=== PATIENT | female | born 1990 | race American Indian/Alaskan Native ===

== ENCOUNTER 2017-08-06 17:05 | Emergency (ER) | payer MEDICAID ==
[2017-08-06] MEDS ORDERED: TYLENOL PO ONE (17:24)
[2017-08-06] MEDS ORDERED: TYLENOL ONE (17:28)
--- NOTE | 2017-08-06 21:16 | Emergency Department Report ---
ED ENT HPI - General Chief complaint: Headache Stated complaint: RIGHT SIDE FACIAL DROOP,HEADACHE Time Seen by Provider: 08/06/17 20:13 Source: patient Mode of arrival: Ambulatory Limitations: No Limitations - Related Data Previous Rx's Medication Instructions Recorded Last Taken Type Docusate Sodium [Colace CAP] 100 mg PO BID PRN #30 capsule 07/11/15 Unknown Rx Magnesium Citrate [Citrate of 300 ml PO PRN #1 bottle 07/11/15 Unknown Rx Magnesia] Ibuprofen [Motrin 800 MG tab] 800 mg PO Q8HR PRN #60 tablet 12/10/15 Unknown Rx Allergies Allergy/AdvReac Type Severity Reaction Status Date / Time Penicillins Allergy Hives Verified 07/11/15 11:32 ED Dental HPI - General Chief complaint: Dental/Oral Stated complaint: RIGHT SIDE FACIAL DROOP,HEADACHE Time Seen by Provider: 08/06/17 20:13 Source: patient Mode of arrival: Ambulatory Limitations: No Limitations - Related Data Previous Rx's Medication Instructions Recorded Last Taken Type Docusate Sodium [Colace CAP] 100 mg PO BID PRN #30 capsule 07/11/15 Unknown Rx Magnesium Citrate [Citrate of 300 ml PO PRN #1 bottle 07/11/15 Unknown Rx Magnesia] Ibuprofen [Motrin 800 MG tab] 800 mg PO Q8HR PRN #60 tablet 12/10/15 Unknown Rx Allergies Allergy/AdvReac Type Severity Reaction Status Date / Time Penicillins Allergy Hives Verified 07/11/15 11:32 ED Review of Systems ROS: Stated complaint: RIGHT SIDE FACIAL DROOP,HEADACHE Other details as noted in HPI ED Past Medical Hx - Past Medical History Hx Asthma: Yes Additional medical history: Anemia during - Surgical History Past Surgical History?: No - Social History Smoking Status: Current Every Day Smoker Substance Use Type: Alcohol - Medications Home Medications: Home Medications Medication Instructions Recorded Confirmed Last Taken Type Docusate Sodium [Colace CAP] 100 mg PO BID PRN #30 capsule 07/11/15 Unknown Rx Magnesium Citrate [Citrate of 300 ml PO PRN #1 bottle 07/11/15 Unknown Rx Magnesia] Ibuprofen [Motrin 800 MG tab] 800 mg PO Q8HR PRN #60 tablet 12/10/15 Unknown Rx ED Physical Exam - General Limitations: No Limitations ED Course Vital Signs 08/06/17 17:16 Temperature 98.7 F Pulse Rate 79 Respiratory 14 Rate Blood Pressure 110/68 O2 Sat by Pulse 99 Oximetry Critical care attestation.: If time is entered above; I have spent that time in minutes in the direct care of this critically ill patient, excluding procedure time. ED Disposition Condition: Stable Referrals: PRIMARY CARE, [Primary Care Provider] - 3-5 Days
[2017-08-06] MEDS ORDERED: BENADRYL IV ONE (21:25)
[2017-08-06] MEDS ORDERED: COMPAZINE IV ONE (21:25)
[2017-08-06] MEDS ORDERED: TORADOL IV ONE (21:26)
[2017-08-06] MEDS ORDERED: NACL 0.9% 1000 ML 1,000 ML IV ONE (21:26)
--- NOTE | 2017-08-06 21:47 | Emergency Department Report ---
ED Headache HPI - General Chief Complaint: Headache Stated Complaint: RIGHT SIDE FACIAL DROOP,HEADACHE Time Seen by Provider: 08/06/17 20:13 Source: patient Exam Limitations: no limitations - History of Present Illness Initial Comments: Pt has had a 3 day h/o right facial pain which she describes as her typical migraine. She has taken Tylenol, hydrocodone given to her by her dentist, but with little relief. Pt given Tylenol in triage which decreased the pain but now pain has returned. number 3 tooth extracted June and is not currently hurting . Pt denies dental pains and facial droop. She states that this is not her tooth hurting. Timing/Duration: constant Quality: moderate Head Injury Location: frontal Recent Head Trauma: no recent headache/trauma, occasional headaches Modifying Factors: improves with: medication Associated Symptoms: denies: denies symptoms, confusion, fatigue, facial pain, fever/chills, flushing, loss of consciousness, nausea/vomiting, nasal congestion , nasal drainage, numbness in legs/feet, rash, seizures, sinus infection, stiff neck, vision changes, weakness, other Allergies/Adverse Reactions: Allergies Penicillins Allergy (Verified 07/11/15 11:32) Hives Home Medications: Ambulatory Orders Docusate Sodium [Colace CAP] 100 mg PO BID PRN #30 capsule 07/11/15 Magnesium Citrate [Citrate of Magnesia] 300 ml PO PRN #1 bottle 07/11/15 Ibuprofen [Motrin 800 MG tab] 800 mg PO Q8HR PRN #60 tablet 12/10/15 Azithromycin [Zithromax] 250 mg PO QDAY #6 tablet 08/06/17 Fluticasone [Flonase] 1 spray NS QDAY #1 bottle 08/06/17 diphenhydrAMINE [Benadryl CAP] 50 mg PO Q6HR PRN #12 capsule 08/06/17 oxyCODONE /ACETAMINOPHEN [Percocet 5/325] 1 tab PO Q6HR PRN #10 tablet 08/06/17 ED Review of Systems ROS: Stated complaint: RIGHT SIDE FACIAL DROOP,HEADACHE Other details as noted in HPI Constitutional: denies: chills, fever Eyes: denies: eye pain, eye discharge, vision change ENT: denies: ear pain, throat pain Respiratory: denies: cough, shortness of breath, wheezing Cardiovascular: denies: chest pain, palpitations Endocrine: no symptoms reported Gastrointestinal: denies: abdominal pain, nausea, diarrhea Genitourinary: denies: urgency, dysuria, discharge Musculoskeletal: denies: back pain, joint swelling, arthralgia Skin: denies: rash, lesions Neurological: denies: headache, weakness, paresthesias Psychiatric: denies: anxiety, depression Hematological/Lymphatic: denies: easy bleeding, easy bruising ED Past Medical Hx - Past Medical History Hx Headaches / Migraines: Yes (h/o migraines) Hx Seizures: No Hx Asthma: Yes Additional medical history: Anemia during , [id number] - Surgical History Additional Surgical History: dental extraction - Family History Family history: hypertension - Social History Smoking Status: Current Every Day Smoker Substance Use Type: Alcohol - Medications Home Medications: Home Medications Medication Instructions Recorded Confirmed Last Taken Type Docusate Sodium [Colace CAP] 100 mg PO BID PRN #30 capsule 07/11/15 Unknown Rx Magnesium Citrate [Citrate of 300 ml PO PRN #1 bottle 07/11/15 Unknown Rx Magnesia] Ibuprofen [Motrin 800 MG tab] 800 mg PO Q8HR PRN #60 tablet 12/10/15 Unknown Rx Azithromycin [Zithromax] 250 mg PO QDAY #6 tablet 08/06/17 Unknown Rx Fluticasone [Flonase] 1 spray NS QDAY #1 bottle 08/06/17 Unknown Rx diphenhydrAMINE [Benadryl CAP] 50 mg PO Q6HR PRN #12 capsule 08/06/17 Unknown Rx oxyCODONE /ACETAMINOPHEN [Percocet 1 tab PO Q6HR PRN #10 tablet 08/06/17 Unknown Rx 5/325] ED Physical Exam - General Limitations: No Limitations General appearance: alert, in distress (pt crying due to headache) - Head Head exam: Present: atraumatic, normocephalic, normal inspection - Eye Eye exam: Present: normal appearance, PERRL, EOMI Pupils: Present: normal accommodation - Expanded ENT Exam Expanded Ear exam: Present: normal external inspection Mouth exam: Present: normal external inspection, other (multiple missing teeth) Teeth exam: Present: other (missing teeth,no infection) - Neck Neck exam: Present: normal inspection, full ROM - Respiratory Respiratory exam: Present: normal lung sounds bilaterally ED Course Vital Signs 08/06/17 17:16 Temperature 98.7 F Pulse Rate 79 Respiratory 14 Rate Blood Pressure 110/68 O2 Sat by Pulse 99 Oximetry - Reevaluation(s) Reevaluation #1: 08/06/17 22:26 improved , headache has decreased and almost gone. ED Medical Decision Making - Lab Data Laboratory Tests 08/06/17 17:56 HCG, Qual Negative - Medical Decision Making Pt has tenderness over right ethmoid and right maxillary sinuses. This may be headache secondary to sinusitis. Critical care attestation.: If time is entered above; I have spent that time in minutes in the direct care of this critically ill patient, excluding procedure time. ED Disposition Clinical Impression: Sinusitis, acute Qualifiers: Sinusitis location: ethmoidal Recurrence: non-recurrent Qualified Code(s): J01.20 - Acute ethmoidal sinusitis, unspecified Migraine Qualifiers: Migraine type: periodic headache syndrome Intractability: intractable Qualified Code(s): G43.C1 - Periodic headache syndromes in child or adult, intractable Disposition: DC-01 TO HOME OR SELFCARE Is pt being admited?: No Does the pt Need Aspirin: No Condition: Stable Instructions: Sinusitis (ED), Migraine Headache (ED) Additional Instructions: Pt follow u with your Dr in tomorrow. Prescriptions: Azithromycin [Zithromax] 250 mg PO QDAY #6 tablet diphenhydrAMINE [Benadryl CAP] 50 mg PO Q6HR PRN #12 capsule PRN Reason: Analgesia Fluticasone [Flonase] 1 spray NS QDAY #1 bottle oxyCODONE /ACETAMINOPHEN [Percocet 5/325] 1 tab PO Q6HR PRN #10 tablet PRN Reason: Pain Referrals: PRIMARY CARE,MD [Primary Care Provider] - 3-5 Days [facility] [Outside] - 3-5 Days
[2017-08-06] MEDS ORDERED: COMPAZINE 10 MG in NACL 0.9% 50 ML IV ONE (22:00)
[2017-08-07 00:27] VITALS: BP 93/57
== END 2017-08-07 00:27 | disposition home or self-care (01) ==
LOC: ED 17:05
DX: G43.C1 Periodic headache syndromes in child or adult, intractable (principal); J01.20 Acute ethmoidal sinusitis, unspecified; J45.909 Unspecified asthma, uncomplicated; I10 Essential (primary) hypertension
CPT/HCPCS: 36415; 84703; 96365; 96375; 99283; J0780; J1200; J1885; J7030

== ENCOUNTER 2018-01-04 18:21 | Emergency (ER) | payer MEDICAID ==
[2018-01-04] MEDS ORDERED: ASPIRIN PO ONE (18:29)
[2018-01-04 19:08] LABS: Basophils % (Auto) 0.6 % (0.0-1.8); Eosinophils # (Auto) 0.2 K/mm3 (0.0-0.4); Eosinophils % (Auto) 3.4 % (0.0-4.3); Hematocrit 36.5 % (30.3-42.9); Hemoglobin 11.9 gm/dl (10.1-14.3); Lymphocytes # (Auto) 2.7 K/mm3 (1.2-5.4); Lymphocytes % (Auto) 39.5 % (13.4-35.0); Mean Corpuscular HGB Conc 33 % (30-34); Mean Corpuscular Hemoglobin 28 pg (28-32); Mean Corpuscular Volume 85 fl (79-97); Monocytes # (Auto) 0.5 K/mm3 (0.0-0.8); Monocytes % (Auto) 6.7 % (0.0-7.3); Platelet Count 211 K/mm3 (140-440); Red Blood Count 4.29 M/mm3 (3.65-5.03); Red Cell Distribution Width 13.6 % (13.2-15.2)
[2018-01-04 19:23] LABS: Alanine Aminotransferase 13 units/L (7-56); BUN/Creatinine Ratio 10; Blood Urea Nitrogen 5 mg/dL (7-17); Calcium 8.8 mg/dL (8.4-10.2); Hemolysis Index 11
[2018-01-04] MEDS ORDERED: ASPIRIN ONE (22:09)
--- NOTE | 2018-01-05 01:14 | Emergency Department Report ---
ED Chest Pain HPI - General Chief Complaint: Chest Pain Stated Complaint: CP Time Seen by Provider: 01/04/18 21:29 Source: patient Mode of arrival: Ambulatory Limitations: No Limitations - History of Present Illness Initial Comments: This is a 27-year-old female with past medical history significant for asthma and has been complaining of sharp left-sided chest pain radiating into her arm for the past 2 weeks. She works at [employer] and denies any kind of smoking alcohol use or illicit drug use. She states she's never had this type of symptoms before. She has been taking ibuprofen with no relief. She has a history also taking oxycodone. She also states that she has problems with her thyroid. She does not have a primary care doctor in the region. MD Complaint: chest pain -: Gradual, week(s) (2) Onset: during rest Pain Location: left chest Pain Radiation: LUE Severity: moderate Severity scale (0 -10): 6 Quality: sharp Consistency: intermittent Improves With: nothing Worsens With: movement re: denies: nausea, vomting, diaphoresis Other Symptoms: denies: cough, fever, syncope, rash, acid taste in mouth, leg swelling Treatments Prior to Arrival: none - Related Data Previous Rx's Medication Instructions Recorded Last Taken Type Docusate Sodium [Colace CAP] 100 mg PO BID PRN #30 capsule 07/11/15 Unknown Rx Magnesium Citrate [Citrate of 300 ml PO PRN #1 bottle 07/11/15 Unknown Rx Magnesia] Ibuprofen [Motrin 800 MG tab] 800 mg PO Q8HR PRN #60 tablet 12/10/15 Unknown Rx Azithromycin [Zithromax] 250 mg PO QDAY #6 tablet 08/06/17 Unknown Rx Fluticasone [Flonase] 1 spray NS QDAY #1 bottle 08/06/17 Unknown Rx diphenhydrAMINE [Benadryl CAP] 50 mg PO Q6HR PRN #12 capsule 08/06/17 Unknown Rx oxyCODONE /ACETAMINOPHEN [Percocet 1 tab PO Q6HR PRN #10 tablet 08/06/17 Unknown Rx 5/325] Cyclobenzaprine [Flexeril] 10 mg PO TID PRN #30 tablet 01/05/18 Unknown Rx Allergies Allergy/AdvReac Type Severity Reaction Status Date / Time Penicillins Allergy Hives Verified 07/11/15 11:32 Heart Score - HEART Score History: Slightly suspicious EKG: Normal Age: < 45 Risk factors: No known risk factors Troponin: < normal limit HEART Score: 0 ED Review of Systems ROS: Stated complaint: CP Other details as noted in HPI Comment: All other systems reviewed and negative Constitutional: no symptoms reported, see HPI Eyes: as per HPI ENT: as per HPI Respiratory: see HPI Cardiovascular: as per HPI Endocrine: see HPI Gastrointestinal: as per HPI Genitourinary: as per HPI Musculoskeletal: as per HPI Skin: as per HPI Neurological: as per HPI Psychiatric: as per HPI Hematological/Lymphatic: as per HPI ED Past Medical Hx - Past Medical History Previous Medical History?: Yes Hx Headaches / Migraines: Yes (h/o migraines) Hx Seizures: No Hx Asthma: Yes Additional medical history: Anemia during , [id number], Thyroid problems - Surgical History Past Surgical History?: Yes Additional Surgical History: dental extraction - Social History Smoking Status: Former Smoker Substance Use Type: Non Opiate Pain, Other - Medications Home Medications: Home Medications Medication Instructions Recorded Confirmed Last Taken Type Docusate Sodium [Colace CAP] 100 mg PO BID PRN #30 capsule 07/11/15 Unknown Rx Magnesium Citrate [Citrate of 300 ml PO PRN #1 bottle 07/11/15 Unknown Rx Magnesia] Ibuprofen [Motrin 800 MG tab] 800 mg PO Q8HR PRN #60 tablet 12/10/15 Unknown Rx Azithromycin [Zithromax] 250 mg PO QDAY #6 tablet 08/06/17 Unknown Rx Fluticasone [Flonase] 1 spray NS QDAY #1 bottle 08/06/17 Unknown Rx diphenhydrAMINE [Benadryl CAP] 50 mg PO Q6HR PRN #12 capsule 08/06/17 Unknown Rx oxyCODONE /ACETAMINOPHEN [Percocet 1 tab PO Q6HR PRN #10 tablet 08/06/17 Unknown Rx 5/325] Cyclobenzaprine [Flexeril] 10 mg PO TID PRN #30 tablet 01/05/18 Unknown Rx ED Physical Exam - General Limitations: No Limitations General appearance: alert, in no apparent distress - Head Head exam: Present: atraumatic, normocephalic - Eye Eye exam: Present: normal appearance, PERRL - ENT ENT exam: Present: normal exam, normal orophraynx - Neck Neck exam: Present: normal inspection, full ROM - Respiratory Respiratory exam: Present: normal lung sounds bilaterally, chest wall tenderness. Absent: respiratory distress, wheezes, rales, rhonchi - Cardiovascular Cardiovascular Exam: Present: regular rate, normal rhythm, normal heart sounds - GI/Abdominal GI/Abdominal exam: Present: soft, normal bowel sounds. Absent: distended, tenderness, guarding, rebound, rigid - Rectal Rectal exam: Present: deferred - Extremities Exam Extremities exam: Present: normal inspection, full ROM, normal capillary refill , other (pain in the left shoulder to palpation) - Back Exam Back exam: Present: normal inspection, full ROM, other - Neurological Exam Neurological exam: Present: alert, oriented X3, CN II-XII intact - Psychiatric Psychiatric exam: Present: normal affect, normal mood - Skin Skin exam: Present: warm, dry, intact, normal color ED Course Vital Signs 01/04/18 01/04/18 01/04/18 18:25 21:52 21:54 Temperature 98.3 F Pulse Rate 84 Respiratory 20 Rate Blood Pressure 108/67 97/63 Blood Pressure [Left] O2 Sat by Pulse 99 100 100 Oximetry 01/04/18 01/04/18 01/04/18 21:56 21:58 22:00 Temperature Pulse Rate 71 Respiratory 17 Rate Blood Pressure 97/63 97/63 Blood Pressure [Left] O2 Sat by Pulse 100 100 100 Oximetry 01/04/18 01/04/18 01/04/18 22:02 22:04 22:06 Temperature Pulse Rate 68 73 67 Respiratory 11 L 16 18 Rate Blood Pressure Blood Pressure [Left] O2 Sat by Pulse 100 100 100 Oximetry 01/04/18 01/04/18 01/04/18 22:07 22:08 22:14 Temperature 97.9 F Pulse Rate 69 70 Respiratory 18 16 Rate Blood Pressure 108/70 Blood Pressure 107/67 [Left] O2 Sat by Pulse 100 100 Oximetry 01/04/18 22:19 Temperature Pulse Rate Respiratory 16 Rate Blood Pressure Blood Pressure [Left] O2 Sat by Pulse 97 Oximetry - Reevaluation(s) Reevaluation #1: 01/05/18 01:13 3 sets of troponin levels are negative. EKGs are unremarkable. Lab work is otherwise unremarkable. I spent with the patient is likely to be musculoskeletal. I advised her that I could give her some pain medicine here and some muscle relaxers and she'll follow-up with her primary care doctor of choice. She expresses understanding. We will discharge the patient. ED Medical Decision Making - Lab Data Result diagrams: 01/04/18 18:58 01/04/18 18:58 Critical care attestation.: If time is entered above; I have spent that time in minutes in the direct care of this critically ill patient, excluding procedure time. ED Disposition Clinical Impression: Costochondritis, acute Disposition: DC-01 TO HOME OR SELFCARE Is pt being admited?: No Does the pt Need Aspirin: No Condition: Stable Instructions: Costochondritis (ED) Additional Instructions: Rest, fluids, follow-up with her primary care doctor, [id number] medications as needed, call 911 if he became having a life-threatening emergency. Take medication as prescribed. Prescriptions: Cyclobenzaprine [Flexeril] 10 mg PO TID PRN #30 tablet PRN Reason: Muscle Spasm Referrals: LIONEL HALE MD [Primary Care Provider] - 3-5 Days Forms: Work/School Release Form(ED)
[2018-01-05] MEDS ORDERED: NORCO 10/325 PO ONE (01:16)
[2018-01-05] MEDS ORDERED: FLEXERIL PO ONE (01:16)
[2018-01-05 01:45] VITALS: BP 99/65
== END 2018-01-05 01:49 | disposition home or self-care (01) ==
LOC: ED 18:21
DX: M94.0 Chondrocostal junction syndrome [Tietze] (principal); G43.909 Migraine, unspecified, not intractable, without status migrainosus; Z87.891 Personal history of nicotine dependence; Z88.0 Allergy status to penicillin
CPT/HCPCS: 36415; 80053; 84484; 85025; 93005; 93010; 99284

== ENCOUNTER 2018-02-06 08:27 | Emergency (ER) | payer MEDICAID ==
[2018-02-06 09:00] LABS: Basophils # (Auto) 0.1 K/mm3 (0.0-0.1); Basophils % (Auto) 0.9 % (0.0-1.8); Eosinophils # (Auto) 0.1 K/mm3 (0.0-0.4); Eosinophils % (Auto) 1.2 % (0.0-4.3); Hematocrit 38.8 % (30.3-42.9); Hemoglobin 12.9 gm/dl (10.1-14.3); Lymphocytes # (Auto) 2.4 K/mm3 (1.2-5.4); Lymphocytes % (Auto) 26.4 % (13.4-35.0); Mean Corpuscular HGB Conc 33 % (30-34); Mean Corpuscular Hemoglobin 28 pg (28-32); Mean Corpuscular Volume 85 fl (79-97); Monocytes # (Auto) 0.5 K/mm3 (0.0-0.8); Monocytes % (Auto) 4.9 % (0.0-7.3); Platelet Count 228 K/mm3 (140-440); Red Blood Count 4.56 M/mm3 (3.65-5.03); Red Cell Distribution Width 13.7 % (13.2-15.2)
[2018-02-06 09:20] LABS: Bilirubin,Urine NEG (Negative); Blood,Urine NEG (Negative); Color,Urine Yellow (Yellow); Mucus,Urine 2+ /HPF; Protein,Urine <15 mg/dL mg/dL (Negative); Urobilinogen,Urine < 2.0 mg/dL (<2.0)
[2018-02-06 09:23] LABS: HCG Qualitative,Urine Positive (Negative)
[2018-02-06 09:29] LABS: Alanine Aminotransferase 15 units/L (7-56); Albumin 4.1 g/dL (3.9-5); BUN/Creatinine Ratio 10; Blood Urea Nitrogen 6 mg/dL (7-17); Hemolysis Index 10; Lipase 27 units/L (13-60)
[2018-02-06] MEDS ORDERED: TYLENOL PO ONE (10:19)
--- NOTE | 2018-02-06 12:55 | Emergency Department Report ---
HPI - General Chief Complaint: Abdominal Pain Time Seen by Provider: 02/06/18 09:02 - HPI HPI: The patient is a 27-year-old female , whom presents for management abdominal pain. The patient reports constant left lower abdominal pain for the past 2 days, crampy in quality, mild in severity, exacerbated with position changes. The patient denies fever, chills, night sweats, diarrhea, blood in the stool, dark tarry stool, dysuria, hematuria, flank pain, genital discharge, inability to pass flatus. ED Past Medical Hx - Past Medical History Previous Medical History?: Yes Hx Headaches / Migraines: Yes (h/o migraines) Hx Seizures: No Hx Asthma: Yes Additional medical history: Anemia during , [id number], Thyroid problems - Surgical History Past Surgical History?: Yes Additional Surgical History: dental extraction - Social History Smoking Status: Former Smoker Substance Use Type: Alcohol - Medications Home Medications: Home Medications Medication Instructions Recorded Confirmed Last Taken Type Docusate Sodium [Colace CAP] 100 mg PO BID PRN #30 capsule 07/11/15 Unknown Rx Magnesium Citrate [Citrate of 300 ml PO PRN #1 bottle 07/11/15 Unknown Rx Magnesia] Ibuprofen [Motrin 800 MG tab] 800 mg PO Q8HR PRN #60 tablet 12/10/15 Unknown Rx Azithromycin [Zithromax] 250 mg PO QDAY #6 tablet 08/06/17 Unknown Rx Fluticasone [Flonase] 1 spray NS QDAY #1 bottle 08/06/17 Unknown Rx diphenhydrAMINE [Benadryl CAP] 50 mg PO Q6HR PRN #12 capsule 08/06/17 Unknown Rx oxyCODONE /ACETAMINOPHEN [Percocet 1 tab PO Q6HR PRN #10 tablet 08/06/17 Unknown Rx 5/325] Cyclobenzaprine [Flexeril] 10 mg PO TID PRN #30 tablet 01/05/18 Unknown Rx Acetaminophen [Tylenol] 500 mg PO Q6HR #30 tablet 02/06/18 Unknown Rx Ondansetron [Zofran TAB] 4 mg PO Q8HR PRN #15 tablet 02/06/18 Unknown Rx Pnv No.95/Ferrous Fum/Folic AC 1 each PO QDAY #31 tablet 02/06/18 Unknown Rx [ Vitamin Tablet] ED Review of Systems ROS: Stated complaint: LOWER ABDOMINAL PAIN Other details as noted in HPI Constitutional: denies: fever ENT: denies: throat or neck pain Respiratory: denies: cough, shortness of breath Cardiovascular: denies: chest pain Endocrine: denies unexplained weight loss or gain Gastrointestinal: reports: abdominal pain, nausea Genitourinary: denies: dysuria Musculoskeletal: denies: leg swelling Skin: denies: rash Neurological: denies: headache Hematological/Lymphatic: denies: easy bleeding or easy bruising Psych: denies sadness or hopelessness Physical Exam - Physical Exam Vital Signs: Vital Signs 02/06/18 02/06/18 08:33 09:04 Temperature 98.6 F Pulse Rate 84 Respiratory 16 16 Rate Blood Pressure 103/70 O2 Sat by Pulse 99 Oximetry Physical Exam: General: well-nourished, well-developed, no acute distress Head: Normocephalic, atraumatic Eyes: normal sclera ENT: Mucous membranes are pink and moist Neck: trachea midline, neck supple, No neck stiffness, no cervical adenopathy Respiratory: Breath sounds equal bilaterally, no wheezing, rales, or rhonchi Cardio: S1 and S2 present, no murmurs, rubs, gallops, capillary refill is brisk Abdomen: Normoactive bowel sounds, soft abdomen, LLQ abd pain, no rigidity, no guarding or rebound tenderness Chest WALL/Back: No tenderness to palpation of the chest wall, no CVA tenderness with percussion Musc: No pitting edema Skin: No rash Neuro: no facial drooping, normal speech Psych: Normal affect ED Course Vital Signs 02/06/18 02/06/18 08:33 09:04 Temperature 98.6 F Pulse Rate 84 Respiratory 16 16 Rate Blood Pressure 103/70 O2 Sat by Pulse 99 Oximetry ED Medical Decision Making - Lab Data Result diagrams: 02/06/18 08:46 02/06/18 08:46 - Medical Decision Making The patient was seen and examined by myself. The patient is placed on a desk monitor and continuous pulse ox. On initial evaluation, the patient was found to be in no distress. Evaluation orders are placed. The patient is given total for pain. Lab results revealed elevated hCG level of 300. Ultrasound of the pelvis was unable to rule out ectopic . The patient was reevaluated and reported that their symptoms were markedly improved. The patient is informed that ectopic is unable to be ruled out, although nml early is possibility, she is instructed to follow- up with her SYSTEM ENGINEER or return to the emergency department for repeat beta hCG testing in 48 hours. The patient is stable for discharge with outpatient follow -up. The patient is given follow-up and return instructions. The patient expressed understanding and agreed with the plan. The patient is discharged in stable condition. Critical care attestation.: If time is entered above; I have spent that time in minutes in the direct care of this critically ill patient, excluding procedure time. ED Disposition Clinical Impression: Abdominal pain during Qualifiers: Trimester: first trimester Qualified Code(s): O26.891 - Other specified related conditions, first trimester; R10.9 - Unspecified abdominal pain Disposition: TO HOME OR SELFCARE Is pt being admited?: No Does the pt Need Aspirin: No Condition: Stable Instructions: Abdominal Pain (ED) Additional Instructions: Your ultrasound was unable to identify a normal intrauterine , and also was not able to rule out an ectopic . Make sure to follow-up with your SYSTEM ENGINEER within the next 48 hours for repeat B-HCG testing and trending. Your beta hCG level should double in 2 days if your is progressing as normal. You could have an ectopic and you must immediately present to an emergency department should you develop worsening of your symptoms or severe pain, vaginal bleeding, lightheadedness, passing out, confusion, or fever. Referrals: PRIMARY CAREMD [Primary Care Provider] - 3-5 Days KATE SPEAR MD [Staff Physician] - 3-5 Days Time of Disposition: 12:59
--- NOTE | 2018-02-06 15:41 | Ultrasound Report ---
FINAL REPORT EXAM: US OB < = 14 WEEKS FETUS HISTORY: abd pain, COMPARISON: None. TECHNIQUE: Transabdominal imaging of the pelvis was performed. FINDINGS: Uterus measures 10.8 x 5.1 x 6.4 centimeters and is anteverted. There is normal echogenicity of the uterine myometrium. The endometrium measures 1.5 centimeters in thickness. There may be a trace amount of fluid within the endometrium. The right ovary measures 5.7 x 3.8 x 4.2 centimeters. There is a large cyst within the right ovary measuring up to 3.3 centimeters. There is normal flow to the right ovary on color Doppler imaging. The left ovary measures 2.7 x 2 x 2.8 centimeters. There is normal morphology. There is normal flow to the right ovary on color Doppler imaging. IMPRESSION: No intrauterine visualized. Findings likely represent very early intrauterine . Recommend serial beta HCG measurements and ultrasound follow-up as clinically indicated. 3.3 centimeter simple appearing cyst of the right ovary.
--- NOTE | 2018-02-06 15:44 | Ultrasound Report ---
FINAL REPORT EXAM: US OB TRANSVAGINAL HISTORY: abd pain, preg COMPARISON: None. TECHNIQUE: Transvaginal imaging of the pelvis was performed. FINDINGS: The uterus measures 10.8 x 5.1 x 6.4 centimeters and is anteverted. There is normal echogenicity of the uterine myometrium. The endometrium measures 1.5 centimeters in thickness. There is a trace amount of fluid within the endometrium. An intrauterine gestation is not visualized. The right ovary measures 5.7 x 3.8 x 4.2 centimeters. There is a large cyst within the right ovary measuring up to 3.3 centimeters. There is normal flow to the right ovary on color Doppler imaging. The left ovary measures 2.7 x 2 x 2.8 centimeters. There is normal morphology. There is normal flow to the right ovary on color Doppler imaging. IMPRESSION: No intrauterine visualized. Findings likely represent very early intrauterine . Recommend serial beta HCG measurements and follow-up ultrasound as clinically indicated. 3.3 centimeter simple appearing cyst of the right ovary.
[2018-02-06 15:53] VITALS: BP 128/74
== END 2018-02-06 15:52 | disposition home or self-care (01) ==
LOC: ED 08:27
DX: O26.891 Other specified pregnancy related conditions, first trimester (principal); R10.32 Left lower quadrant pain; G43.909 Migraine, unspecified, not intractable, without status migrainosus; Z87.891 Personal history of nicotine dependence; Z3A.14 14 weeks gestation of pregnancy
CPT/HCPCS: 36415; 76801; 76817; 80053; 81001; 81025; 83690; 84702; 85025; 99284

== ENCOUNTER 2018-04-12 17:35 | Emergency (ER) | payer MEDICAID ==
[2018-04-12 17:43] VITALS: BP 111/60
[2018-04-12 19:05] LABS: Hematocrit 34.1 % (30.3-42.9); Hemoglobin 11.2 gm/dl (10.1-14.3); Mean Corpuscular HGB Conc 33 % (30-34); Mean Corpuscular Hemoglobin 28 pg (28-32); Mean Corpuscular Volume 86 fl (79-97); Platelet Count 213 K/mm3 (140-440); Red Blood Count 3.97 M/mm3 (3.65-5.03); Red Cell Distribution Width 13.5 % (13.2-15.2)
[2018-04-12 19:32] LABS: Bacteria,Urine 1+ /HPF (Negative); Bilirubin,Urine NEG (Negative); Blood,Urine NEG (Negative); Color,Urine Yellow (Yellow); Mucus,Urine FEW /HPF; Protein,Urine <15 mg/dL mg/dL (Negative); Urobilinogen,Urine < 2.0 mg/dL (<2.0)
[2018-04-12 20:05] LABS: BUN/Creatinine Ratio 13; Blood Urea Nitrogen 5 mg/dL (7-17); Calcium 9.5 mg/dL (8.4-10.2); Hemolysis Index 3
--- NOTE | 2018-04-12 22:44 | Ultrasound Report ---
FINAL REPORT EXAM: US OB < = 14 WEEKS FETUS HISTORY: pt fell on abd/syncope,now abd pain TECHNIQUE: Transabdominal sonography of the pelvis. PRIORS: 06 February 2018. FINDINGS: There is a single, live intrauterine . Ultrasound estimated gestational age is 13 weeks 4 days. Ultrasound estimated date of confinement is 14 October 2018. heart motion is detected. The right ovary measures 3.6 x 2.1 x 3.5 cm and contains small, cystic focus measuring approximately 1.8 cm probably physiologic. The left ovary measures 3.5 x 1.8 x 2.4 cm and is grossly unremarkable. Remainder of uterus and adnexa grossly unremarkable. IMPRESSION: 1. Single, live intrauterine . 2. Probable functional cystic change in the right ovary.
== END 2018-04-13 01:10 | disposition left against medical advice (07) ==
LOC: ED 17:35
DX: R55 Syncope and collapse (principal); G43.909 Migraine, unspecified, not intractable, without status migrainosus; Z88.0 Allergy status to penicillin; Z53.21 Procedure and treatment not carried out due to patient leaving prior to being seen by health care provider
CPT/HCPCS: 36415; 76801; 80048; 81001; 84702; 85027

== ENCOUNTER 2018-05-04 11:31 | Observation (INO) | payer MEDICAID ==
[2018-05-04] MEDS ORDERED: TYLENOL PO PRN (13:33)
--- NOTE | 2018-05-04 13:57 | History and Physical Report ---
History of Present Illness Date of examination: 05/04/18 Chief complaint: Seen in the office today and she is requesting IV Fluids. She is a now 16.4 weeks. Lost 6lbs during the first trimester, now almost back up to pre weight of 161. Will admit for IVF x 2 liters and discharge home. History of present illness: SEE CC Past History Past Medical History: asthma Past Surgical History: no surgical history Family/Genetic History: none Social history: no significant social history - Obstetrical History Expected Date of Delivery: 10/15/18 Actual Gestation: 16 Week(s) 4 Day(s) : 5 Para: 3 Number of Living Children: 3 Medications and Allergies Allergies Allergy/AdvReac Type Severity Reaction Status Date / Time Penicillins Allergy Hives Verified 07/11/15 11:32 Home Medications Medication Instructions Recorded Confirmed Last Taken Type Docusate Sodium [Colace CAP] 100 mg PO BID PRN #30 capsule 07/11/15 Unknown Rx Magnesium Citrate [Citrate of 300 ml PO PRN #1 bottle 07/11/15 Unknown Rx Magnesia] Ibuprofen [Motrin 800 MG tab] 800 mg PO Q8HR PRN #60 tablet 12/10/15 Unknown Rx Azithromycin [Zithromax] 250 mg PO QDAY #6 tablet 08/06/17 Unknown Rx Fluticasone [Flonase] 1 spray NS QDAY #1 bottle 08/06/17 Unknown Rx diphenhydrAMINE [Benadryl CAP] 50 mg PO Q6HR PRN #12 capsule 08/06/17 Unknown Rx oxyCODONE /ACETAMINOPHEN [Percocet 1 tab PO Q6HR PRN #10 tablet 08/06/17 Unknown Rx 5/325] Cyclobenzaprine [Flexeril] 10 mg PO TID PRN #30 tablet 01/05/18 Unknown Rx Acetaminophen [Tylenol] 500 mg PO Q6HR #30 tablet 02/06/18 Unknown Rx Ondansetron [Zofran TAB] 4 mg PO Q8HR PRN #15 tablet 02/06/18 Unknown Rx Pnv No.95/Ferrous Fum/Folic AC 1 each PO QDAY #31 tablet 02/06/18 Unknown Rx [ Vitamin Tablet] Active Meds: Active Medications Acetaminophen (Tylenol) 650 mg PO Q4H PRN PRN Reason: Pain MILD(1-3)/Fever >100.5/MOLINA Lactated Ringer's (Lactated Ringers) 1,000 mls @ 150 mls/hr IV DIRECT LIDIA Review of Systems All systems: negative - Physical Exam Breasts: Positive: deferred Cardiovascular: Regular rate Lungs: Positive: Clear to auscultation Abdomen: Positive: soft Vulva: both: normal Uterus: Positive: enlarged Results All other labs normal. Assessment and Plan A:Dehydration @ 16.4 weeks P: IVF x 2 liters then discharge home.
[2018-05-04] MEDS: LACTATED RINGERS 1,000 ML IV SCH (23:01)
[2018-05-05] MEDS: LACTATED RINGERS 1,000 ML IV SCH (06:02)
--- NOTE | 2018-05-05 14:16 | Event Note ---
Date: 05/05/18 Patient was admitted yesterday for hyperemesis and dehydration. She was able to tolerate regular diet for lunch. She was given 2 liters of RL. She is feeling better today. Will discharge her home with zofran. F/U in 2 weeks in office.
[2018-05-05 15:58] VITALS: BP 94/57
== END 2018-05-05 16:00 | disposition home or self-care (01) ==
LOC: UNDOADMOB 11:31 → 3A 11:31 → OB 19:11
PROVIDERS: ADMIT Obstetrics & Gynecology; ATTEND Obstetrics & Gynecology
DX: O99.282 Endocrine, nutritional and metabolic diseases complicating pregnancy, second trimester (principal); E86.0 Dehydration; Z3A.16 16 weeks gestation of pregnancy
CPT/HCPCS: 96360; 96361; G0378; G0379; J7120

== ENCOUNTER 2018-06-09 13:05 | Outpatient (CLI) | payer MEDICAID ==
[2018-06-09] MEDS ORDERED: TYLENOL PO ONE (15:41)
[2018-06-09 15:55] VITALS: BP 100/58
[2018-06-09 16:12] LABS: Bilirubin,Urine NEG (Negative); Blood,Urine NEG (Negative); Color,Urine Yellow (Yellow); Mucus,Urine 2+ /HPF; Protein,Urine <15 mg/dL mg/dL (Negative); Urobilinogen,Urine < 2.0 mg/dL (<2.0)
[2018-06-09] MEDS ORDERED: MOTRIN PO ONE (19:56)
--- NOTE | 2018-06-09 21:12 | Ultrasound Report ---
FINAL REPORT PROCEDURE: US OB > = 14 WEEKS FETUS TECHNIQUE: Real-time transabdominal sonography of the uterus, placenta, amniotic fluid, adnexa, and fetus was performed with image documentation. Detailed anatomic examination was performed. Measurements were obtained to determine age/size. M-mode Doppler was used to document heartbeat. CPT 82408 HISTORY: WELL BEING COMPARISON: April 12, 2018 FINDINGS: GESTATION: Single intrauterine GENERAL: IUP: Single living intrauterine . Position: Breech Placental position: Posterior and low lying, without previa. There is 2.8 x 1.3 cm hypoechoic region possible placental Wagner at the inferior aspect. Amniotic fluid volume: Normal. MATERNAL: Uterus: Within normal limits. Cervical length: 3.6 cm. Internal Os: Open. FETUS: Heart rate and rhythm: 143 BPM, Regular . Detailed anatomic examination: No anomalies on routine anatomic screen MEASUREMENTS: BPD: 5.4 cm, 22 weeks 2 days HC: 20.9 cm, 23 weeks 0 days AC: 17.5 cm, 22 weeks 3 days FL: 3.6 cm , 21 weeks 3 days Mean Gestational Age (composite criteria): 22 weeks 5 days Ratio biometry: Normal. Estimated Weight: 474 grams. Interval growth: Appropriate. Estimated Due Date (earliest scan): October 15, 2018 IMPRESSION: Single intrauterine gestation at 21 weeks 5 days Estimated due date: October 15, 2018. Placenta is posterior and low lying. Nonspecific hypodensity at the inferior aspect. Normal survey with appropriate growth.
== END 2018-06-09 19:25 | disposition home or self-care (01) ==
LOC: TRG 13:05
PROVIDERS: ATTEND Obstetrics & Gynecology
DX: O47.02 False labor before 37 completed weeks of gestation, second trimester (principal); Z3A.21 21 weeks gestation of pregnancy; Z88.0 Allergy status to penicillin
CPT/HCPCS: 59025; 76805; 81001

== ENCOUNTER 2018-07-06 12:14 | Outpatient (CLI) | payer MEDICAID ==
[2018-07-06 13:09] VITALS: BP 98/59
[2018-07-06] MEDS ORDERED: TYLENOL PO ONE (13:50)
[2018-07-06 14:21] LABS: Bacteria,Urine 2+ /HPF (Negative); Bilirubin,Urine NEG (Negative); Blood,Urine NEG (Negative); Color,Urine Yellow (Yellow); Mucus,Urine 1+ /HPF; Protein,Urine <15 mg/dL mg/dL (Negative)
[2018-07-06] MEDS ORDERED: LACTATED RINGERS 1,000 ML IV ONE (14:22)
== END 2018-07-06 16:24 | disposition home or self-care (01) ==
LOC: TRG 12:14 → LD 12:16 → TRG 16:24
PROVIDERS: ATTEND Obstetrics & Gynecology
DX: O47.02 False labor before 37 completed weeks of gestation, second trimester (principal); O99.512 Diseases of the respiratory system complicating pregnancy, second trimester; Z3A.26 26 weeks gestation of pregnancy
CPT/HCPCS: 59025; 81001; 87086; J7120

== ENCOUNTER 2018-07-20 18:47 | Outpatient (CLI) | payer MEDICAID ==
[2018-07-20 23:03] LABS: Bilirubin,Urine NEG (Negative); Blood,Urine NEG (Negative); Color,Urine Yellow (Yellow); Mucus,Urine 3+ /HPF; Urobilinogen,Urine < 2.0 mg/dL (<2.0)
--- NOTE | 2018-07-21 00:02 | Ultrasound Report ---
FINAL REPORT EXAM: US OB LIMITED HISTORY: Leaking Fluid TECHNIQUE: A limited transabdominal obstetrical sonogram was obtained for evaluation of the MARILYN. FINDINGS: The fetus is in cephalic presentation. The heart rate is 138 BPM. The MARILYN is 13.0 cm which is normal. IMPRESSION: Normal MARILYN of 13.0 cm. The heart rate is 138 BPM.
--- NOTE | 2018-07-21 00:10 | Ultrasound Report ---
FINAL REPORT PROCEDURE: US OB BPP WO NON-STRESS TECHNIQUE: Sonographic evaluation for breathing, movement, tone, and amniotic fluid volume was performed. CPT 72855 HISTORY: Leaking Fluid COMPARISON: No prior studies are available for comparison. FINDINGS: Amniotic fluid volume: Normal-score 2. At least one vertical pocket > 2 cm or more in vertical axis. breathing: Normal-score 2. movement: Normal-score 2. tone: Normal. Score: 8 of 8. IMPRESSION: Normal biophysical profile.
[2018-07-21] MEDS ORDERED: LACTATED RINGERS 1,000 ML IV ONE (00:14)
[2018-07-21 03:32] VITALS: BP 100/57
== END 2018-07-21 03:34 | disposition home or self-care (01) ==
LOC: TRG 18:47
PROVIDERS: ATTEND Obstetrics & Gynecology
DX: O47.02 False labor before 37 completed weeks of gestation, second trimester (principal); O99.512 Diseases of the respiratory system complicating pregnancy, second trimester; J45.909 Unspecified asthma, uncomplicated; Z3A.27 27 weeks gestation of pregnancy
CPT/HCPCS: 59025; 76815; 76819; 81001; 96360; J7120

== ENCOUNTER 2019-02-03 11:15 | Day surgery (SDC) | payer MEDICAID ==
[2019-02-03] MEDS ORDERED: LACTATED RINGERS 1,000 ML IV SCH (11:50)
--- NOTE | 2019-02-03 12:52 | Anesthesia Day of Surgery ---
Anesthesia Day of Surgery - Day of Surgery Patient Examined: Yes Patient H&P Reviewed: Yes Patient is NPO: Yes
--- NOTE | 2019-02-03 12:52 | Anesthesia Consultation ---
Anesthesia Consult and Med Hx Date of service: 02/03/19 - Airway Anesthetic Teeth Evaluation: Good ROM Head & Neck: Adequate Mental/Hyoid Distance: Adequate Mallampati Class: Class II Intubation Access Assessment: Good - Pulmonary Exam CTA: Yes - Cardiac Exam Cardiac Exam: No Murmur - Pre-Operative Health Status ASA Pre-Surgery Classification: ASA2 Proposed Anesthetic Plan: General - Pulmonary Hx Asthma: Yes (Last treated April 2018) COPD: No - Cardiovascular System Hx Hypertension: No - Central Nervous System Hx Seizures: No Hx Psychiatric Problems: No - Endocrine Hx Renal Disease: No Hx End Stage Renal Disease: No Hx Hypothyroidism: No Hx Hyperthyroidism: Yes (subclinical) - Hematic Hx Anemia: Yes (Iron bid) Hx Sickle Cell Disease: No - Other Systems Hx Alcohol Use: No Hx Cancer: No
[2019-02-03] MEDS ORDERED: VERSED IV NR (13:00)
[2019-02-03] MEDS ORDERED: PEPCID PO NR (13:00)
[2019-02-03] MEDS ORDERED: MARCAINE 0.5% INFILTRATI ONE ×2 (13:11→13:40)
[2019-02-03] MEDS ORDERED: NACL 0.9% IR ONE (13:40)
[2019-02-03] MEDS ORDERED: SUBLIMAZE ONE ×2 (13:41→14:19)
[2019-02-03] MEDS ORDERED: DIPRIVAN 10 MG/ML IV ONE (13:41)
[2019-02-03] MEDS ORDERED: QUELICIN ONE (14:50)
[2019-02-03] MEDS ORDERED: XYLOCAINE CARDIAC IV ONE (14:50)
[2019-02-03] MEDS ORDERED: ZEMURON IV ONE (14:50)
[2019-02-03] MEDS ORDERED: BREVIBLOC IV ONE (14:50)
[2019-02-03] MEDS ORDERED: DECADRON ONE (14:50)
[2019-02-03] MEDS ORDERED: ZOFRAN ONE ×2 (14:50→16:34)
--- NOTE | 2019-02-03 15:44 | Operative Report ---
Operative Report Operative Report: Preop diagnosis 1. Undesired fertility 2. Multiparity Postop diagnosis 1. Undesired fertility 2. Multiparity 3. Bilateral hydrosalpinx Procedure 1. Laparoscopic bilateral tubal ligation Surgeon Dr. Holli Isidro Findings 1. 8 weeks Anteverted uterus 2. Bilateral hydrosalpinx 3. Normal bilateral ovaries Specimen removed: None Anesthesia: General I/O EBL: <25ml Urine: 20ml clear Complications: none Disposition: Patient to PACU in stable condition INDICATION: 28yo with undesired fertility presents for bilateral tubal ligation. The risks including failure rate of , ectopic , bleeding, infection, injury to vessels, bladder and/or bowel were discussed. Benefits and alternatives were discussed and informed consent signed. PROCEDURE: The patient was taken to OR Rm 11 in stable condition. She was placed on the bed in the supine position and adequate anesthesia was achieved. She wore SCDs for DVT prophylaxis. She was prepped and draped in the sterile fashion and a time out was done. She was re-positioned in the dorsal lithotomy position with Ashu stirrups. A red catheter was used to drain the bladder. A sterile speculum was placed per vagina and a single toothed tenaculum was placed on the anterior lip of the cervix. The uterus was dilated using Polanco dilators, sounded to 10cm and a balloon uterine manipulator was placed. Attention was then turned to the abdomen where a 0.5cm infraumbilical incision was made. A 5mm Applied Fios trocar was placed at the umbilicus under direct visualization and used to insufflate the abdomen with CO2 gas. An intra- abdominal survey noted no abdominal adhesions. A RLQ 5mm incision was made and 5mm trocar placed under direct visualization. The right tube was identified and traced down to the fimbriated end. A 3-4cm portion of the isthmus was identified, elevated and the Ethicon bipolar device was used to cauterize the right tube. Laparoscopic scissors were then used to ligate the tube. The same procedure was carried out on her left tube. Bleeding of the right mesosalpinx was noted and therefore was cauterized with the bipolar device. Both tubes were noted to be hemostatic. The RLQ trocar was removed under direct visualization. The abdomen was freed of gas and the infraumbilical trocar was removed. Both skin incisions were closed with 4-0 Vicryl. Attention was then turned to the perineum. The uterine manipulator was removed. And the cervix was noted to be hemostatic. The procedure was ended. All counts were correct x 2. The patient was awakened from anesthesia in stable condition and transported to the PACU. I was present and scrubbed for the entire procedure.
[2019-02-03] MEDS ORDERED: DEMEROL ONE (16:34)
[2019-02-03] MEDS ORDERED: ZOFRAN IV PRN (16:36)
[2019-02-03] MEDS ORDERED: DEMEROL IV PRN (16:36)
[2019-02-03 17:12] VITALS: BP 105/60
[2019-02-03] MEDS ORDERED: TYLENOL PR ONE (17:21)
== END 2019-02-03 18:10 | disposition home or self-care (01) ==
LOC: OR 11:15
PROVIDERS: ATTEND Obstetrics & Gynecology
DX: Z30.2 Encounter for sterilization (principal); G43.909 Migraine, unspecified, not intractable, without status migrainosus; E05.90 Thyrotoxicosis, unspecified without thyrotoxic crisis or storm; D50.9 Iron deficiency anemia, unspecified; Z80.8 Family history of malignant neoplasm of other organs or systems; Z79.899 Other long term (current) drug therapy; Z88.0 Allergy status to penicillin; Z98.890 Other specified postprocedural states; Z98.891 History of uterine scar from previous surgery; Z82.49 Family history of ischemic heart disease and other diseases of the circulatory system
CPT/HCPCS: 58670; 81025; J0330; J1100; J2001; J2175; J2250; J2405; J2704; J3010; J7120

== ENCOUNTER 2020-01-05 12:58 | Emergency (ER) | payer MEDICAID ==
[2020-01-05] MEDS ORDERED: IPRATROPIUM/ALBUTEROL SULFATE 3 ML AMPUL.NEB IH ONE (14:33)
[2020-01-05] MEDS ORDERED: predniSONE 50 MG TAB PO STA (14:33)
--- NOTE | 2020-01-05 15:04 | XRay Report ---
CHEST 2 VIEWS INDICATION / CLINICAL INFORMATION: Cough and wheezing with sob. History of asthma. COMPARISON: 2 views of the chest from 04/03/2014. FINDINGS: SUPPORT DEVICES: None. HEART / MEDIASTINUM: No significant abnormality. LUNGS / PLEURA: No significant pulmonary or pleural abnormality. No pneumothorax. ADDITIONAL FINDINGS: No significant additional findings. IMPRESSION: 1. No acute abnormality of the chest. Signer Name: Kaushik Dmearco MD Signed: 01/05/2020 3:00 PM Workstation Name: [id number]
[2020-01-05] MEDS ORDERED: IBUPROFEN 800 MG TAB PO ONE (16:32)
[2020-01-05] MEDS ORDERED: ALBUTEROL 2.5 MG/3 ML NEBU IH ONE (16:33)
--- NOTE | 2020-01-05 16:38 | Emergency Department Report ---
<MAUJAKE - Last Filed: 01/05/20 16:34> ED Shortness of Breath HPI - General Chief Complaint: Dyspnea/Respdistress Stated Complaint: CP/SOB Time Seen by Provider: 01/05/20 14:32 Source: patient Mode of arrival: Ambulatory Limitations: No Limitations - History of Present Illness Initial Comments: 29-year-old -[place] female patient with history of asthma presents with complaints of sudden onset of left-sided chest pain and shortness of breath occurring around 5 AM this morning. She states the pain awoke her from her sleep and describes it as something sitting on her chest. She rates the pain as a 9/10 in severity. Patient states she believes this feels like her asthma, however she has only had one asthma attack prior when she was 17 so she is unsure. She denies any leg pain/swelling, recent surgeries, history of DVT/PE, history of cancer, hemoptysis, recent long travel, for extended sitting. Patient was given 1 DuoNeb and states her pain and shortness of breath have not improved. She denies worsening of shortness of breath with exertion. Patient also denies any trauma to her chest wall or recent heavy lifting. MD Complaint: shortness of breath - Related Data Home Medications Medication Instructions Recorded Confirmed Last Taken Albuterol Sulfate [Ventolin Hfa] 2 puff IH Q4H PRN 01/19/19 02/03/19 05/03/18 10:00 Previous Rx's Medication Instructions Recorded Last Taken Type Albuterol Sulfate [Proventil Hfa] 6.7 gm IH QID PRN #1 hfa.aer.ad 01/05/20 Unknown Rx Prednisone [predniSONE 10 mg 10 mg PO .TAPER #1 tab.ds.pk 01/05/20 Unknown Rx (6-Day Pack, 21 Tabs)] Allergies Allergy/AdvReac Type Severity Reaction Status Date / Time Penicillins Allergy Hives Verified 01/19/19 15:08 ED Review of Systems Constitutional: denies: chills, diaphoresis, fever, malaise, weakness Eyes: denies: vision change Respiratory: shortness of breath, SOB at rest. denies: cough, SOB with exertion Cardiovascular: chest pain. denies: palpitations, orthopnea, edema, syncope Gastrointestinal: denies: abdominal pain, nausea, vomiting Musculoskeletal: denies: back pain Neurological: denies: headache, weakness ED Past Medical Hx - Past Medical History Previous Medical History?: Yes Hx Hypertension: No Hx Diabetes: No Hx Deep Vein Thrombosis: No Hx Renal Disease: No Hx Sickle Cell Disease: No Hx Headaches / Migraines: Yes (Migraines) Hx Seizures: No Hx Asthma: Yes (Last treated April 2018) Hx COPD: No Hx HIV: No Additional medical history: Anemia during , [id number], Thyroid problems - Surgical History Past Surgical History?: Yes Additional Surgical History: dental extraction - Social History Smoking Status: Current Every Day Smoker Substance Use Type: None - Medications Home Medications: Home Medications Medication Instructions Recorded Confirmed Last Taken Type Albuterol Sulfate [Ventolin Hfa] 2 puff IH Q4H PRN 01/19/19 02/03/19 05/03/18 10:00 History Albuterol Sulfate [Proventil Hfa] 6.7 gm IH QID PRN #1 hfa.aer.ad 01/05/20 Unknown Rx Prednisone [predniSONE 10 mg 10 mg PO .TAPER #1 tab.ds.pk 01/05/20 Unknown Rx (6-Day Pack, 21 Tabs)] ED Physical Exam - General Limitations: No Limitations General appearance: alert, in no apparent distress - Head Head exam: Present: atraumatic, normocephalic - Eye Eye exam: Present: normal appearance. Absent: scleral icterus - Neck Neck exam: Present: normal inspection, full ROM - Respiratory Respiratory exam: Present: normal lung sounds bilaterally, chest wall tenderness (Generalized left sided). Absent: respiratory distress, wheezes, rales, rhonchi, stridor - Cardiovascular Cardiovascular Exam: Present: regular rate, normal rhythm. Absent: systolic murmur, diastolic murmur, rubs, gallop - GI/Abdominal GI/Abdominal exam: Present: soft, normal bowel sounds. Absent: distended, tenderness, guarding, rebound, rigid - Extremities Exam Extremities exam: Present: normal inspection, full ROM. Absent: calf tenderness (No swelling/edema noted bilaterally) - Neurological Exam Neurological exam: Present: alert, oriented X3 - Psychiatric Psychiatric exam: Present: normal affect, normal mood - Skin Skin exam: Present: warm, dry, intact, normal color. Absent: rash, cyanosis, diaphoretic, erythema, ecchymosis ED Disposition Clinical Impression: Shortness of breath Chest pain Qualifiers: Chest pain type: unspecified Qualified Code(s): R07.9 - Chest pain, unspecified Asthma Qualifiers: Asthma severity: unspecified severity Asthma persistence: unspecified Asthma co mplication type: with acute exacerbation Qualified Code(s): J45.901 - Unspecified asthma with (acute) exacerbation Disposition: DC-01 TO HOME OR SELFCARE Condition: Stable Instructions: Asthma (ED) Additional Instructions: Please take medication as prescribed. Avoid smoking or secondhand smoke. Please follow-up with your primary care doctor in the next 3 days for reexamination. Return to the emergency room for any new or worsening symptoms. Prescriptions: Prednisone [predniSONE 10 mg (6-Day Pack, 21 Tabs)] 10 mg PO .TAPER #1 tab.ds.pk Albuterol Sulfate [Proventil Hfa] 6.7 gm IH QID PRN #1 hfa.aer.ad PRN Reason: Shortness Of Breath Referrals: PRIMARY CARE, [Primary Care Provider] - 2-3 Days Forms: Work/School Release Form(ED) Print Language: MALIAN <SUZAN BLANCO - Last Filed: 01/06/20 02:17> ED Review of Systems ROS: Stated complaint: CP/SOB Other details as noted in HPI ED Course Vital Signs 01/05/20 01/05/20 01/05/20 14:32 15:32 20:15 Temperature 98.2 F Pulse Rate 73 90 Pulse Rate [ 88 Bilateral] Respiratory 16 18 Rate Respiratory 16 Rate [Bilateral ] Blood Pressure 105/71 Blood Pressure 105/71 99/59 [Right] O2 Sat by Pulse 99 100 Oximetry ED Medical Decision Making - Lab Data Result diagrams: 01/05/20 16:33 01/05/20 16:33 Lab Results 01/05/20 01/05/20 01/05/20 Range/Units 16:33 16:33 16:33 WBC 6.9 (4.5-11.0) K/mm3 RBC 4.36 (3.65-5.03) M/mm3 Hgb 11.8 (10.1-14.3) gm/dl Hct 36.5 (30.3-42.9) % MCV 84 (79-97) fl MCH 27 L (28-32) pg MCHC 32 (30-34) % RDW 13.7 (13.2-15.2) % Plt Count 233 (140-440) K/mm3 Lymph % (Auto) 31.9 (13.4-35.0) % Mcintosh % (Auto) 5.4 (0.0-7.3) % Eos % (Auto) 1.2 (0.0-4.3) % Baso % (Auto) 1.0 (0.0-1.8) % Lymph # 2.2 (1.2-5.4) K/mm3 Mcintosh # 0.4 (0.0-0.8) K/mm3 Eos # 0.1 (0.0-0.4) K/mm3 Baso # 0.1 (0.0-0.1) K/mm3 Seg Neutrophils % 60.5 (40.0-70.0) % Seg Neutrophils # 4.2 (1.8-7.7) K/mm3 D-Dimer 407.87 H (0-234) ng/mlDDU Sodium 140 (137-145) mmol/L Potassium 3.6 (3.6-5.0) mmol/L Chloride 104.2 (98-107) mmol/L Carbon Dioxide 23 (22-30) mmol/L Anion Gap 16 mmol/L BUN 7 (7-17) mg/dL Creatinine 0.6 L (0.7-1.2) mg/dL Estimated GFR > 60 ml/min BUN/Creatinine Ratio 12 % Glucose 86 (65-100) mg/dL Calcium 9.3 (8.4-10.2) mg/dL Magnesium (1.7-2.3) mg/dL Total Bilirubin 0.80 (0.1-1.2) mg/dL Direct Bilirubin < 0.2 (0-0.2) mg/dL Indirect Bilirubin 0.6 mg/dL AST 19 (5-40) units/L ALT 17 (7-56) units/L Alkaline Phosphatase 68 (35-129) units/L Troponin T < 0.010 (0.00-0.029) ng/mL Total Protein 7.1 (6.3-8.2) g/dL Albumin 4.2 (3.9-5) g/dL Albumin/Globulin Ratio 1.4 % HCG, Qual (Negative) 01/05/20 01/05/20 01/05/20 Range/Units 16:33 17:52 19:11 WBC (4.5-11.0) K/mm3 RBC (3.65-5.03) M/mm3 Hgb (10.1-14.3) gm/dl Hct (30.3-42.9) % MCV (79-97) fl MCH (28-32) pg MCHC (30-34) % RDW (13.2-15.2) % Plt Count (140-440) K/mm3 Lymph % (Auto) (13.4-35.0) % Mcintosh % (Auto) (0.0-7.3) % Eos % (Auto) (0.0-4.3) % Baso % (Auto) (0.0-1.8) % Lymph # (1.2-5.4) K/mm3 Mcintosh # (0.0-0.8) K/mm3 Eos # (0.0-0.4) K/mm3 Baso # (0.0-0.1) K/mm3 Seg Neutrophils % (40.0-70.0) % Seg Neutrophils # (1.8-7.7) K/mm3 D-Dimer (0-234) ng/mlDDU Sodium (137-145) mmol/L Potassium (3.6-5.0) mmol/L Chloride (98-107) mmol/L Carbon Dioxide (22-30) mmol/L Anion Gap mmol/L BUN (7-17) mg/dL Creatinine (0.7-1.2) mg/dL Estimated GFR ml/min BUN/Creatinine Ratio % Glucose (65-100) mg/dL Calcium (8.4-10.2) mg/dL Magnesium 1.70 (1.7-2.3) mg/dL Total Bilirubin (0.1-1.2) mg/dL Direct Bilirubin (0-0.2) mg/dL Indirect Bilirubin mg/dL AST (5-40) units/L ALT (7-56) units/L Alkaline Phosphatase (35-129) units/L Troponin T < 0.010 (0.00-0.029) ng/mL Total Protein (6.3-8.2) g/dL Albumin (3.9-5) g/dL Albumin/Globulin Ratio % HCG, Qual Negative (Negative) - Radiology Data Radiology results: report reviewed CHEST 2 VIEWS INDICATION / CLINICAL INFORMATION: Cough and wheezing with sob. History of asthma. COMPARISON: 2 views of the chest from 04/03/2014. FINDINGS: SUPPORT DEVICES: None. HEART / MEDIASTINUM: No significant abnormality. LUNGS / PLEURA: No significant pulmonary or pleural abnormality. No pneumothora x. ADDITIONAL FINDINGS: No significant additional findings. IMPRESSION: 1. No acute abnormality of the chest. Signer Name: Kaushik Demaroc MD Signed: 01/05/2020 3:00 PM Workstation Name: [id number] Transcribed By: MN Dictated By: Kaushik Demarco MD Electronically Authenticated By: Kaushik Demarco MD Signed Date/Time: 01/05/20 1500 DD/ 1459 TD/TT: CT angio chest INDICATION / CLINICAL INFORMATION: Left-sided chest pain. TECHNIQUE: Axial CT images were obtained after injection of Omnipaque 300, 100 cc IV contrast using CTA protocol. 3 plane MIP / 3D reconstructions were produced. All CT scans at this location are perform ed using CT dose reduction for ALARA by means of automated exposure control. COMPARISON: None available. FINDINGS: Negative for lung mass, infiltrate or pleural fluid. No mediastinal mass or adenopathy. Negative for aneurysm, dissection or pulmonary embolus. Imaging of the upper abdomen is unremarkable. IMPRESSION: Negative for pulmonary embolus or pneumonia. Signer Name: Jamie Lopes MD Signed: 01/05/2020 7:40 PM Workstation Name: [id number] Transcribed By: TERE Dictated By: Jamie Lopes MD Electronically Authenticated By: Jamie Lopes MD Signed Date/Time: 01/05/201939 DD/ 36 TD/TT: - Medical Decision Making s/o by Jake Miller PA-C pending CTA chest results CTA chest: Negative for pulmonary embolus or pneumonia. Chest x-ray with no acute process Labs are stable, troponin is negative x2 Patient given treatment with steroids of breath sounds are completely clear on my examination, no wheezing, no rales, no rhonchi According to screening provider patient had wheezing on exam, symptoms most likely related to an acute asthma exacerbation Patient given prescription for steroid taper and albuterol inhaler advised pt to please take medication as prescribed. Avoid smoking or secondhand smoke. Please follow-up with your primary care doctor in the next 3 days for reexamination. Return to the emergency room for any new or worsening symptoms. - Differential Diagnosis Asthma exacerbation, URI, PNA, PE, ACS, CHF, cardiomyopathy Critical care attestation.: If time is entered above; I have spent that time in minutes in the direct care of this critically ill patient, excluding procedure time. ED Disposition Is pt being admited?: No Does the pt Need Aspirin: No Time of Disposition: 20:05
[2020-01-05 17:26] LABS: Alanine Aminotransferase 17 units/L (7-56); Albumin 4.2 g/dL (3.9-5); BUN/Creatinine Ratio 12; Blood Urea Nitrogen 7 mg/dL (7-17); Calcium 9.3 mg/dL (8.4-10.2); Hemolysis Index 37
[2020-01-05 17:34] LABS: Bilirubin,Direct < 0.2 mg/dL (0-0.2)
[2020-01-05 18:47] LABS: Basophils # (Auto) 0.1 K/mm3 (0.0-0.1); Eosinophils # (Auto) 0.1 K/mm3 (0.0-0.4); Eosinophils % (Auto) 1.2 % (0.0-4.3); Hematocrit 36.5 % (30.3-42.9); Hemoglobin 11.8 gm/dl (10.1-14.3); Lymphocytes # (Auto) 2.2 K/mm3 (1.2-5.4); Lymphocytes % (Auto) 31.9 % (13.4-35.0); Mean Corpuscular HGB Conc 32 % (30-34); Mean Corpuscular Volume 84 fl (79-97); Monocytes # (Auto) 0.4 K/mm3 (0.0-0.8); Monocytes % (Auto) 5.4 % (0.0-7.3); Platelet Count 233 K/mm3 (140-440); Red Blood Count 4.36 M/mm3 (3.65-5.03); Red Cell Distribution Width 13.7 % (13.2-15.2)
[2020-01-05] MEDS ORDERED: SODIUM CHLORIDE 0.9% 50 ML ONE (18:50)
--- NOTE | 2020-01-05 19:44 | Cat Scan Report ---
CT angio chest INDICATION / CLINICAL INFORMATION: Left-sided chest pain. TECHNIQUE: Axial CT images were obtained after injection of Omnipaque 300, 100 cc IV contrast using CTA protocol . 3 plane MIP / 3D reconstructions were produced. All CT scans at this location are performed using C T dose reduction for ALARA by means of automated exposure control. COMPARISON: None available. FINDINGS: Negative for lung mass, infiltrate or pleural fluid. No mediastinal mass or adenopathy. Negative for aneurysm, dissection or pulmonary embolus. Imaging of the upper abdomen is unremarkable. IMPRESSION: Negative for pulmonary embolus or pneumonia. Signer Name: Jamie Lopes MD Signed: 01/05/2020 7:40 PM Workstation Name: [id number]
[2020-01-05 20:24] VITALS: BP 99/59
== END 2020-01-05 20:15 | disposition home or self-care (01) ==
LOC: ED 12:58
DX: J45.909 Unspecified asthma, uncomplicated (principal); G43.909 Migraine, unspecified, not intractable, without status migrainosus; F17.200 Nicotine dependence, unspecified, uncomplicated; Z98.890 Other specified postprocedural states; Z79.899 Other long term (current) drug therapy; Z88.0 Allergy status to penicillin
CPT/HCPCS: 36415; 71046; 71275; 80048; 80076; 83735; 84484; 84703; 85025; 85379; 93005; 93010; 94640; 99285; J7512; Q9967; 94644

== ENCOUNTER 2021-06-05 18:31 | Emergency (ER) | payer SELFPAY ==
[2021-06-05] MEDS ORDERED: IBUPROFEN 800 MG TAB PO ONE (20:23)
[2021-06-05] MEDS ORDERED: ONDANSETRON 4 MG ODT TAB PO ONE (21:23)
[2021-06-05 21:24] VITALS: BP 104/64
--- NOTE | 2021-06-05 21:52 | Emergency Department Report ---
ED General Adult HPI - General Chief complaint: Fever Stated complaint: FEVER/HEADACHE/CHILLS Source: patient Mode of arrival: Ambulatory Limitations: No Limitations - History of Present Illness Initial comments: Patient is a 30-year-old -Maur[place] female with a history of migraine headaches, asthma and iron deficiency anemia presents to the ED with complaint of acute onset persistent severe diffuse body aches and pains, persistent intermittent fever and chills, generalized weakness, frontal headache, nasal and sinus congestion and persistent dry cough for the last 2 days, worse in the last 12 hours. Patient states that she has also been feeling generalized weakness and fatigue with lack of appetite. Patient states that no one else at home has had similar symptoms. Patient denies dizziness, syncope, chest pain or shortness of breath, nausea, vomiting, diarrhea, abdominal pain, dysuria, urinary frequency and urgency or vaginal bleeding and sore throat. MD Complaint: Fever, body aches and pains, mild dry cough and headache -: Sudden, days(s) (2) Location: head, back Radiation: non-radiation Severity scale (0 -10): 8 Quality: aching, sharp Consistency: constant Improves with: none Worsens with: none Associated Symptoms: denies other symptoms, cough, fever/chills, headaches, loss of appetite, malaise. denies: confusion, chest pain, diaphoresis, nausea/vomiting, rash, seizure, shortness of breath, syncope, weakness Treatments Prior to Arrival: none - Related Data Home Medications Medication Instructions Recorded Confirmed Last Taken Albuterol Sulfate [Ventolin Hfa] 2 puff IH Q4H PRN 01/19/19 02/03/19 05/03/18 10:00 Previous Rx's Medication Instructions Recorded Last Taken Type Albuterol Sulfate [Proventil Hfa] 6.7 gm IH QID PRN #1 hfa.aer.ad 01/05/20 Unknown Rx Prednisone [predniSONE 10 mg 10 mg PO .TAPER #1 tab.ds.pk 01/05/20 Unknown Rx (6-Day Pack, 21 Tabs)] Azithromycin [Zithromax Z-CLAUDIA] 250 mg PO DAILY #6 tablet 06/06/21 Unknown Rx Benzonatate [Tessalon Perles] 100 mg PO Q8HR #30 capsule 06/06/21 Unknown Rx Cetirizine HCl [Zyrtec 10mg tab] 10 mg PO DAILY #30 tablet 06/06/21 Unknown Rx Ibuprofen [Motrin] 600 mg PO Q8H PRN #30 tablet 06/06/21 Unknown Rx Ondansetron [Zofran Odt] 4 mg PO Q8HR PRN #15 tab.rapdis 06/06/21 Unknown Rx Allergies Allergy/AdvReac Type Severity Reaction Status Date / Time Penicillins Allergy Hives Verified 01/19/19 15:08 ED Review of Systems ROS: Stated complaint: FEVER/HEADACHE/CHILLS Other details as noted in HPI Constitutional: chills, fever, malaise, weakness Eyes: denies: eye pain, eye discharge, vision change ENT: congestion, other (Frontal headache and pressure) Respiratory: no symptoms reported, cough. denies: see HPI, shortness of breath, SOB with exertion, SOB at rest Cardiovascular: as per HPI. denies: dyspnea on exertion, orthopnea, edema, syncope, paroxysmal nocturnal dyspnea Endocrine: no symptoms reported Gastrointestinal: denies: abdominal pain, nausea, vomiting, diarrhea Genitourinary: denies: urgency, dysuria, discharge Musculoskeletal: denies: back pain, joint swelling, arthralgia Skin: denies: rash, lesions Neurological: headache. denies: weakness, paresthesias Psychiatric: denies: anxiety, depression Hematological/Lymphatic: denies: easy bleeding, easy bruising ED Past Medical Hx - Past Medical History Previous Medical History?: Yes Hx Hypertension: No Hx Diabetes: No Hx Deep Vein Thrombosis: No Hx Renal Disease: No Hx Sickle Cell Disease: No Hx Headaches / Migraines: Yes (Migraines) Hx Seizures: No Hx Asthma: Yes (Last treated April 2018) Hx COPD: No Hx HIV: No Additional medical history: Anemia during , [id number], Thyroid problems - Surgical History Past Surgical History?: Yes Additional Surgical History: dental extraction. c section - Social History Smoking Status: Never Smoker Substance Use Type: None - Medications Home Medications: Home Medications Medication Instructions Recorded Confirmed Last Taken Type Albuterol Sulfate [Ventolin Hfa] 2 puff IH Q4H PRN 01/19/19 02/03/19 05/03/18 10:00 History Albuterol Sulfate [Proventil Hfa] 6.7 gm IH QID PRN #1 hfa.aer.ad 01/05/20 Unknown Rx Prednisone [predniSONE 10 mg 10 mg PO .TAPER #1 tab.ds.pk 01/05/20 Unknown Rx (6-Day Pack, 21 Tabs)] Azithromycin [Zithromax Z-CLAUDIA] 250 mg PO DAILY #6 tablet 06/06/21 Unknown Rx Benzonatate [Tessalon Perles] 100 mg PO Q8HR #30 capsule 06/06/21 Unknown Rx Cetirizine HCl [Zyrtec 10mg tab] 10 mg PO DAILY #30 tablet 06/06/21 Unknown Rx Ibuprofen [Motrin] 600 mg PO Q8H PRN #30 tablet 06/06/21 Unknown Rx Ondansetron [Zofran Odt] 4 mg PO Q8HR PRN #15 tab.rapdis 06/06/21 Unknown Rx ED Physical Exam - General Limitations: No Limitations General appearance: alert, in no apparent distress - Head Head exam: Present: atraumatic, normocephalic, normal inspection - Eye Eye exam: Present: normal appearance, PERRL, EOMI Pupils: Present: normal accommodation - ENT ENT exam: Present: normal orophraynx, mucous membranes moist, TM's normal bilaterally, normal external ear exam, other (Grossly congested nasal passages) - Neck Neck exam: Present: normal inspection, full ROM - Respiratory Respiratory exam: Present: normal lung sounds bilaterally. Absent: respiratory distress, wheezes, rales, rhonchi, chest wall tenderness, accessory muscle use, prolonged expiratory - Cardiovascular Cardiovascular Exam: Present: regular rate, normal rhythm, normal heart sounds. Absent: systolic murmur, diastolic murmur, rubs, gallop - GI/Abdominal GI/Abdominal exam: Present: soft, normal bowel sounds. Absent: tenderness, guarding, hyperactive bowel sounds, hypoactive bowel sounds, organomegaly - Extremities Exam Extremities exam: Present: normal inspection, full ROM, normal capillary refill - Back Exam Back exam: Present: normal inspection, full ROM. Absent: tenderness, CVA tenderness (R), CVA tenderness (L), muscle spasm, paraspinal tenderness - Neurological Exam Neurological exam: Present: alert, oriented X3, CN II-XII intact, normal gait, reflexes normal - Psychiatric Psychiatric exam: Present: normal affect, normal mood - Skin Skin exam: Present: warm, dry, intact, normal color. Absent: rash ED Course Vital Signs 06/05/21 20:20 Temperature 100.3 F H Pulse Rate 93 H Respiratory 16 Rate Blood Pressure 104/64 O2 Sat by Pulse 99 Oximetry ED Medical Decision Making - Lab Data Result diagrams: 06/05/21 21:27 06/05/21 21:27 - Radiology Data Radiology results: report reviewed, image reviewed [facility] [address] [place] [address] XRay Report Signed Patient: RICH AVILES MR #: [id number] : 1990 Acct:[id number] Age/Sex: 30 / F ADM Date: 06/05/21 Loc: ED Attending Dr: Ordering Physician: GUEVARA SOLORIO Date of Service: 06/05/21 Procedure(s): XR chest routine 2V Accession Number(s): [id number] cc: GUEVARA SOLORIO Fluoro Time In Minutes: CHEST 2 VIEWS INDICATION / CLINICAL INFORMATION: fever, body aches. COMPARISON: Chest x-ray 01/05/2020 FINDINGS: SUPPORT DEVICES: None. HEART / MEDIASTINUM: No significant abnormality. LUNGS / PLEURA: No significant pulmonary or pleural abnormality. No pneumothorax. ADDITIONAL FINDINGS: No significant additional findings. IMPRESSION: 1. No acute findings. Signer Name: Karl Nielson MD Signed: 06/05/2021 10:00 PM Workstation Name: [id number] Transcribed By: TL Dictated By: Karl Nielson MD Electronically Authenticated By: Karl Nielson MD Signed Date/Time: 06/05/212199 DD/ 58 TD/TT: Print - Medical Decision Making This is a 30-year-old -Maur[place] female with a history of migraine he adaches, asthma and iron deficiency anemia presents to the ED with complaint of acute onset persistent severe diffuse body aches and pains, persistent intermittent fever and chills, generalized weakness, frontal headache, nasal and sinus congestion and persistent dry cough for the last 2 days, worse in the last 12 hours. Patient states that she has also been feeling generalized weakness and fatigue with lack of appetite. Patient states that no one else at home has had similar symptoms. In the ED, patient is alert and oriented x3 and is not in any distress but febrile and normotensive in triage. Patient was treated for fever and pain in the ED. lab test results were reviewed and are all n onactionable. Chest x-ray shows no acute cardiopulmonary abnormalities or pneumonitis. Patient symptoms are likely viral or atypical bacterial infection. Therefore take medication with food, drink plenty of fluids and follow-up with your primary care physician in 7 to 10 days for reevaluation. Return to the ED immediately if symptoms get worse. - Differential Diagnosis URI; COVID-19; bronchitis; pneumonia; sinusitis; Critical care attestation.: If time is entered above; I have spent that time in minutes in the direct care of this critically ill patient, excluding procedure time. ED Disposition Clinical Impression: Acute upper respiratory infection, Fever and chills Acute bronchitis Qualifiers: Bronchitis organism: other organism Qualified Code(s): J20.8 - Acute bronchitis due to other specified organisms Disposition: 01 HOME / SELF CARE / HOMELESS Is pt being admited?: No Does the pt Need Aspirin: No Condition: Stable Instructions: Cough, Adult, [id number], Acute Bronchitis, Adult, [id number], Upper Respiratory Infection, Adult, [id number], Acute Bronchitis (ED), Fever, Adult, Glez-ht-Tinf Additional Instructions: All lab test results were reviewed and are all nonactionable. Chest x-ray shows no acute cardiopulmonary abnormalities pneumonitis. Therefore take medication with food, drink plenty of fluids and follow-up with your primary care physician in 7 to 10 days for reevaluation. Return to the ED immediately if symptoms get worse. Prescriptions: Ibuprofen [Motrin] 600 mg PO Q8H PRN #30 tablet PRN Reason: Pain Benzonatate [Tessalon Perles] 100 mg PO Q8HR #30 capsule Azithromycin [Zithromax Z-CLAUDIA] 250 mg PO DAILY #6 tablet Ondansetron [Zofran Odt] 4 mg PO Q8HR PRN #15 tab.rapdis PRN Reason: Nausea Cetirizine HCl [Zyrtec 10mg tab] 10 mg PO DAILY #30 tablet Referrals: [facility] [Provider Group] - 3-5 Days Forms: Work/School Release Form(ED) Time of Disposition: 01:13 Print Language: NORTH KOREAN
[2021-06-05 21:54] LABS: Hematocrit 34.5 % (30.3-42.9); Hemoglobin 11.1 gm/dl (10.1-14.3); Mean Corpuscular HGB Conc 32 % (30-34); Mean Corpuscular Volume 80 fl (79-97); Platelet Count 208 K/mm3 (140-440); Red Blood Count 4.33 M/mm3 (3.65-5.03); Red Cell Distribution Width 15.7 % (13.2-15.2)
--- NOTE | 2021-06-05 22:04 | XRay Report ---
CHEST 2 VIEWS INDICATION / CLINICAL INFORMATION: fever, body aches. COMPARISON: Chest x-ray 01/05/2020 FINDINGS: SUPPORT DEVICES: None. HEART / MEDIASTINUM: No significant abnormality. LUNGS / PLEURA: No significant pulmonary or pleural abnormality. No pneumothorax. ADDITIONAL FINDINGS: No significant additional findings. IMPRESSION: 1. No acute findings. Signer Name: Karl Nielson MD Signed: 06/05/2021 10:00 PM Workstation Name: [id number]
[2021-06-05 22:15] LABS: Alanine Aminotransferase 9 units/L (7-56); Albumin 4.2 g/dL (3.9-5); Blood Urea Nitrogen 6 mg/dL (7-17); Calcium 8.7 mg/dL (8.4-10.2); Hemolysis Index 1
[2021-06-05 22:19] LABS: BUN/Creatinine Ratio 9
[2021-06-05 22:37] LABS: Total Cells Counted 100
[2021-06-05 22:38] LABS: Anisocytosis RARE; Hypochromasia 1+
[2021-06-06 00:45] LABS: Bilirubin,Urine NEG (Negative); Blood,Urine NEG (Negative); Color,Urine Yellow (Yellow); Mucus,Urine 3+ /HPF; Urobilinogen,Urine < 2.0 mg/dL (<2.0)
== END 2021-06-06 02:00 | disposition home or self-care (01) ==
LOC: ED 18:31
DX: J06.9 Acute upper respiratory infection, unspecified (principal); J20.8 Acute bronchitis due to other specified organisms; R50.9 Fever, unspecified; G43.909 Migraine, unspecified, not intractable, without status migrainosus; J45.909 Unspecified asthma, uncomplicated; Z79.899 Other long term (current) drug therapy; Z98.890 Other specified postprocedural states; Z88.0 Allergy status to penicillin
CPT/HCPCS: 36415; 71046; 80053; 81001; 84703; 85007; 85025

== ENCOUNTER 2021-06-25 08:05 | Emergency (ER) | payer SELFPAY ==
--- NOTE | 2021-06-25 08:15 | Emergency Department Report ---
ED General Adult HPI - General Chief complaint: Fever Stated complaint: FEVER,WEAK,SOB,CAN'T SWOLLOW Time Seen by Provider: 06/25/21 08:08 Source: patient Mode of arrival: Ambulatory Limitations: No Limitations - History of Present Illness Initial comments: 30-year-old F Scottish female with past medical history of asthma and thyroid disease. Presents emerge department complaining of a 2-day history of progressive worsening coryza, polymyalgia, fatigue, chest pain and weakness with occasional cough. Reports no sick contacts. No hemoptysis no hematemesis no hematochezia, no abdominal pain no constipation no diarrhea. -: Gradual Radiation: non-radiation Severity scale (0 -10): 5 Quality: aching, dull Consistency: constant Improves with: none Worsens with: none Associated Symptoms: chest pain, cough, fever/chills, loss of appetite, malaise, nausea/vomiting, weakness. denies: shortness of breath, syncope - Related Data Home Medications Medication Instructions Recorded Confirmed Last Taken Albuterol Sulfate [Ventolin Hfa] 2 puff IH Q4H PRN 01/19/19 02/03/19 05/03/18 10:00 Previous Rx's Medication Instructions Recorded Last Taken Type Albuterol Sulfate [Proventil Hfa] 6.7 gm IH QID PRN #1 hfa.aer.ad 01/05/20 Unknown Rx Prednisone [predniSONE 10 mg 10 mg PO .TAPER #1 tab.ds.pk 01/05/20 Unknown Rx (6-Day Pack, 21 Tabs)] Azithromycin [Zithromax Z-CLAUDIA] 250 mg PO DAILY #6 tablet 06/06/21 Unknown Rx Benzonatate [Tessalon Perles] 100 mg PO Q8HR #30 capsule 06/06/21 Unknown Rx Cetirizine HCl [Zyrtec 10mg tab] 10 mg PO DAILY #30 tablet 06/06/21 Unknown Rx Ibuprofen [Motrin] 600 mg PO Q8H PRN #30 tablet 06/06/21 Unknown Rx Ondansetron [Zofran Odt] 4 mg PO Q8HR PRN #15 tab.rapdis 06/06/21 Unknown Rx Albuterol Mdi (or & Nicu Only) 1 puff IH Q4-6H PRN #1 inha 06/25/21 Unknown Rx [ProAir HFA Inhaler] Azithromycin [Zithromax] 500 mg PO QDAY #3 tablet 06/25/21 Unknown Rx predniSONE [Deltasone] 50 mg PO QDAY #5 tab 06/25/21 Unknown Rx Allergies Allergy/AdvReac Type Severity Reaction Status Date / Time Penicillins Allergy Hives Verified 01/19/19 15:08 ED Review of Systems ROS: Stated complaint: FEVER,WEAK,SOB,CAN'T SWOLLOW Other details as noted in HPI Comment: All other systems reviewed and negative ED Past Medical Hx - Past Medical History Previous Medical History?: Yes Hx Hypertension: No Hx Diabetes: No Hx Deep Vein Thrombosis: No Hx Renal Disease: No Hx Sickle Cell Disease: No Hx Headaches / Migraines: Yes (Migraines) Hx Seizures: No Hx Asthma: Yes (Last treated April 2018) Hx COPD: No Hx HIV: No Additional medical history: Anemia during , [id number], Thyroid problems - Surgical History Past Surgical History?: Yes Additional Surgical History: dental extraction. c section - Social History Smoking Status: Never Smoker Substance Use Type: None - Medications Home Medications: Home Medications Medication Instructions Recorded Confirmed Last Taken Type Albuterol Sulfate [Ventolin Hfa] 2 puff IH Q4H PRN 01/19/19 02/03/19 05/03/18 10:00 History Albuterol Sulfate [Proventil Hfa] 6.7 gm IH QID PRN #1 hfa.aer.ad 01/05/20 Unknown Rx Prednisone [predniSONE 10 mg 10 mg PO .TAPER #1 tab.ds.pk 01/05/20 Unknown Rx (6-Day Pack, 21 Tabs)] Azithromycin [Zithromax Z-CLAUDIA] 250 mg PO DAILY #6 tablet 06/06/21 Unknown Rx Benzonatate [Tessalon Perles] 100 mg PO Q8HR #30 capsule 06/06/21 Unknown Rx Cetirizine HCl [Zyrtec 10mg tab] 10 mg PO DAILY #30 tablet 06/06/21 Unknown Rx Ibuprofen [Motrin] 600 mg PO Q8H PRN #30 tablet 06/06/21 Unknown Rx Ondansetron [Zofran Odt] 4 mg PO Q8HR PRN #15 tab.rapdis 06/06/21 Unknown Rx Albuterol Mdi (or & Nicu Only) 1 puff IH Q4-6H PRN #1 inha 06/25/21 Unknown Rx [ProAir HFA Inhaler] Azithromycin [Zithromax] 500 mg PO QDAY #3 tablet 06/25/21 Unknown Rx predniSONE [Deltasone] 50 mg PO QDAY #5 tab 06/25/21 Unknown Rx ED Physical Exam - General Limitations: No Limitations General appearance: alert, lethargic - Head Head exam: Present: atraumatic, normocephalic - Eye Eye exam: Present: normal appearance, PERRL, EOMI Pupils: Present: normal accommodation - ENT ENT exam: Present: normal exam, mucous membranes moist - Neck Neck exam: Present: normal inspection - Respiratory Respiratory exam: Present: normal lung sounds bilaterally. Absent: respiratory distress, wheezes, rales, chest wall tenderness - Cardiovascular Cardiovascular Exam: Present: regular rate, normal rhythm. Absent: systolic murmur, diastolic murmur, rubs, gallop - GI/Abdominal GI/Abdominal exam: Present: soft, normal bowel sounds - Extremities Exam Extremities exam: Present: normal inspection - Back Exam Back exam: Present: normal inspection - Neurological Exam Neurological exam: Present: alert, oriented X3 - Psychiatric Psychiatric exam: Present: normal affect, normal mood - Skin Skin exam: Present: warm, dry, intact, normal color. Absent: rash ED Course Vital Signs 06/25/21 08:08 Temperature 100.8 F H Pulse Rate 102 H Respiratory 20 Rate Blood Pressure 104/69 [Right] O2 Sat by Pulse 100 Oximetry ED Medical Decision Making - Lab Data Result diagrams: 06/25/21 08:41 06/25/21 08:41 - Radiology Data Radiology results: report reviewed [facility] [address] [place] [address] XRay Report Signed Patient: RICH AVILES MR #: [id number] : 1990 Acct:[id number] Age/Sex: 30 / F ADM Date: 06/25/21 Loc: ED Attending Dr: Ordering Physician: GUEVARA CARRION Date of Service: 06/25/21 Procedure(s): XR chest routine 2V Accession Number(s): [id number] cc: GUEVARA CARRION Fluoro Time In Minutes: CHEST 2 VIEWS INDICATION: chest pain cough. COMPARISON: 06/05/2021 FINDINGS: Support devices: None. Heart: Within normal limits. Lungs/pleura: No acute air space or interstitial disease. No pneumothorax. Additional findings: None. IMPRESSION: No acute findings. No change since 06/05/2021. Signer Name: Pasha Grace Jr, MD Signed: 06/25/2021 11:12 AM Workstation Name: [id number] Transcribed By: TTR Dictated By: PASHA GRACE JR, MD Electronically Authenticated By: PASHA GRACE JR, MD Signed Date/Time: 06/25/21 1112 DD/ 1111 TD/TT: Print Cancel - Medical Decision Making This 30-year-old female patient presents with symptoms suspicious for likely viral upper respiratory tract infection. Differential includes bacterial pneumo matt, sinusitis, allergic rhinitis, Do not suspect underlying Cardiopulmonary process. I considered but think unlikely dangerous cause of this patient symptoms to include acute coronary syndrome, CHF or COPD exacerbations, pneumonia, pneumothorax. Patient is nontoxic appearing and not in need of e mergent medical intervention. Plan: Reassurance, reassessment, [id number]-pavpogg medications, discharge with PCP follow-up This patient presents to the emergency department with fever and lower respi ratory symptoms concerning for viral syndrome including flu and COVID-19. Patient has suspicion and is for COVID-19 infection. Differential diagnosis includes other viral causes of lower respiratory symptoms, pneumonia, asthma, bronchitis. Patient is well-appearing with acceptable vitals, lacks c omorbidities admission and a reassuring physical examination and is safe to be discharged home nasal swab for COVID testing is recommended. Provide strict return precautions and instructions on self isolation/quarantine and anticipatory guidance. Maintains appropriate saturation with ambulation. Critical care attestation.: If time is entered above; I have spent that time in minutes in the direct care of this critically ill patient, excluding procedure time. ED Disposition Clinical Impression: Cough, Viral syndrome Disposition: HOME / SELF CARE / HOMELESS Is pt being admited?: No Does the pt Need Aspirin: No Condition: Stable Instructions: Cool Mist Vaporizer, COVID-19, Viral Respiratory Infection Test, Viral Illness, Adult, Cough, Adult, Acute Bronchitis, Adult Additional Instructions: Given evaluate emergency department today for your congestion, cough and fevers. Your evaluation suggest that your symptoms are most likely due to a viral illness. Which will improve on its own with rest and fluids. Recommend that you take ibuprofen 600 mg every 6 hours or Tylenol 03/30/1951 every 6 hours as needed for fever. If needed you can alternate these medications so that you take one medication every 3 hours. For instance at noon take ibuprofen and at 3 PM take Tylenol and then at 6 PM take ibuprofen. Please schedule an appointment for follow-up with your primary care physician within a week. Return to the emergency department if you experience worsening cough, uncontrollable fevers that not being controlled with Tylenol ibuprofen. Recurrent vomiting, chest pain, shortness of breath or any other symptoms suggesting that your condition is worsening. Prescriptions: predniSONE [Deltasone] 50 mg PO QDAY #5 tab Albuterol Mdi (or & Nicu Only) [ProAir HFA Inhaler] 1 puff IH Q4-6H PRN #1 inha PRN Reason: Cough Azithromycin [Zithromax] 500 mg PO QDAY #3 tablet Referrals: [facility] [Provider Group] - 3-5 Days PRIMARY MD MEAGHAN [Primary Care Provider] - 3-5 Days BUDDY MALIK MD [Staff Physician] - 3-5 Days
[2021-06-25 09:06] LABS: Basophils % (Auto) 0.2 % (0.0-1.8); Eosinophils % (Auto) 0.3 % (0.0-4.3); Hematocrit 35.1 % (30.3-42.9); Hemoglobin 11.3 gm/dl (10.1-14.3); Lymphocytes # (Auto) 1.7 K/mm3 (1.2-5.4); Lymphocytes % (Auto) 11.1 % (13.4-35.0); Mean Corpuscular HGB Conc 32 % (30-34); Mean Corpuscular Volume 80 fl (79-97); Monocytes # (Auto) 0.9 K/mm3 (0.0-0.8); Monocytes % (Auto) 5.6 % (0.0-7.3); Platelet Count 240 K/mm3 (140-440); Red Blood Count 4.41 M/mm3 (3.65-5.03); Red Cell Distribution Width 15.8 % (13.2-15.2)
[2021-06-25 09:28] LABS: BUN/Creatinine Ratio 9; Blood Urea Nitrogen 6 mg/dL (7-17); Calcium 9.1 mg/dL (8.4-10.2); Hemolysis Index 4
[2021-06-25 09:55] LABS: Bilirubin,Urine NEG (Negative); Blood,Urine NEG (Negative); Color,Urine Amber (Yellow); Mucus,Urine 1+ /HPF
[2021-06-25 10:35] LABS: HCG Qualitative,Urine Negative (Negative)
--- NOTE | 2021-06-25 11:16 | XRay Report ---
CHEST 2 VIEWS INDICATION: chest pain cough. COMPARISON: 06/05/2021 FINDINGS: Support devices: None. Heart: Within normal limits. Lungs/pleura: No acute air space or interstitial disease. No pneumothorax. Additional findings: None. IMPRESSION: No acute findings. No change since 06/05/2021. Signer Name: Pasha Grace Jr, MD Signed: 06/25/2021 11:12 AM Workstation Name: [id number]
[2021-06-25 13:59] VITALS: BP 97/61
== END 2021-06-25 14:42 | disposition home or self-care (01) ==
LOC: ED 08:05
DX: B34.9 Viral infection, unspecified (principal); R53.83 Other fatigue; R07.89 Other chest pain; R53.1 Weakness; R05 Cough; G43.909 Migraine, unspecified, not intractable, without status migrainosus; Z98.890 Other specified postprocedural states; Z88.0 Allergy status to penicillin; Z79.899 Other long term (current) drug therapy
CPT/HCPCS: 36415; 71046; 80048; 81001; 81025; 84443; 85025; 99283

== ENCOUNTER 2021-12-16 13:11 | Emergency (ER) | payer SELFPAY ==
[2021-12-16 15:26] VITALS: BP 114/76
[2021-12-16] MEDS ORDERED: BUTALB/ACETAMINOPHEN/CAFFEINE TAB PO ONE (17:45)
--- NOTE | 2021-12-16 18:21 | Cat Scan Report ---
CT head/brain wo con INDICATION / CLINICAL INFORMATION: 31 years Female; syncope, +LOC. TECHNIQUE: Routine CT head without contrast. All CT scans at this location are performed using CT dos e reduction for ALARA by means of automated exposure control. COMPARISON: None. FINDINGS: BRAIN / INTRACRANIAL CONTENTS: No acute hemorrhage, mass effect, midline shift, hydrocephalus, or acu te, large territorial infarct. No signs of significant atrophy or chronic infarct. No significant whi te matter abnormality seen. CRANIOCERVICAL JUNCTION: No significant abnormality. ORBITS: No significant abnormality of visualized orbits. SINUSES / MASTOIDS: Visualized paranasal sinuses and mastoid air cells are essentially clear. ADDITIONAL FINDINGS: None. IMPRESSION: 1. No focal mass, hemorrhage, hydrocephalus, or acute, large territorial infarct. Signer Name: Iron Huggins MD, III Signed: 12/16/2021 6:16 PM Workstation Name: [id number]
--- NOTE | 2021-12-16 18:54 | Emergency Department Report ---
ED Fall HPI - General Chief Complaint: Syncope Stated Complaint: SYNCOPE EPISODE/HIT HEAD Time Seen by Provider: 12/16/21 17:10 Source: patient Mode of arrival: Ambulatory - History of Present Illness Initial Comments: 31 yof with no pmh presents to ed for evaluation of syncopal episode. She states that she was getting her lip hunt, it was taking to long, she got hot, and had syncopal episode. She states that her friend who was there say that she was out for a while and had what looked like a seizure. She denies any history of seizures. She states that the LOC lasted for about 10 minutes. MD Complaint: fall -: Sudden Fall From: wheelchair When Fall Occurred: 4-6 hours [employer] Fall Witnessed: yes, by bystander Loss of Consciousness: yes Prolonged Down Time?: yes Symptoms Prior to Fall: lightheadedness Severity scale (0 -10): 10 Quality: aching Associated Symptoms: headache. denies: neck pain, numbness, chest paint, shortness of breath, abdominal pain, hematuria, unable to walk, lightheaded, vertigo, confusion, other - Related Data Home Medications Medication Instructions Recorded Confirmed Last Taken Albuterol Sulfate [Ventolin Hfa] 2 puff IH Q4H PRN 01/19/19 02/03/19 05/03/18 10:00 Previous Rx's Medication Instructions Recorded Last Taken Type Albuterol Sulfate [Proventil Hfa] 6.7 gm IH QID PRN #1 hfa.aer.ad 01/05/20 Unknown Rx Prednisone [predniSONE 10 mg 10 mg PO .TAPER #1 tab.ds.pk 01/05/20 Unknown Rx (6-Day Pack, 21 Tabs)] Azithromycin [Zithromax Z-CLAUDIA] 250 mg PO DAILY #6 tablet 06/06/21 Unknown Rx Benzonatate [Tessalon Perles] 100 mg PO Q8HR #30 capsule 06/06/21 Unknown Rx Cetirizine HCl [Zyrtec 10mg tab] 10 mg PO DAILY #30 tablet 06/06/21 Unknown Rx Ibuprofen [Motrin] 600 mg PO Q8H PRN #30 tablet 06/06/21 Unknown Rx Ondansetron [Zofran Odt] 4 mg PO Q8HR PRN #15 tab.rapdis 06/06/21 Unknown Rx Albuterol Mdi (or & Nicu Only) 1 puff IH Q4-6H PRN #1 inha 06/25/21 Unknown Rx [ProAir HFA Inhaler] Azithromycin [Zithromax] 500 mg PO QDAY #3 tablet 06/25/21 Unknown Rx predniSONE [Deltasone] 50 mg PO QDAY #5 tab 06/25/21 Unknown Rx Butalb/Acetaminophen/Caffeine 1 cap PO Q6HR PRN #21 cap 12/16/21 Unknown Rx [Fioricet 50-300-40 mg CAP] Allergies Allergy/AdvReac Type Severity Reaction Status Date / Time Penicillins Allergy Hives Verified 01/19/19 15:08 ED Review of Systems ROS: Stated complaint: SYNCOPE EPISODE/HIT HEAD Other details as noted in HPI Comment: All other systems reviewed and negative Constitutional: denies: chills, diaphoresis, fever, malaise, weakness Eyes: denies: eye pain ENT: denies: ear pain Respiratory: SOB at rest. denies: cough, orthopnea, shortness of breath, SOB with exertion Cardiovascular: denies: chest pain, dyspnea on exertion Endocrine: no symptoms reported Gastrointestinal: denies: abdominal pain, nausea, vomiting, diarrhea, constipation Genitourinary: denies: urgency, dysuria Musculoskeletal: denies: back pain Skin: denies: rash, lesions Neurological: denies: headache, weakness, numbness, paresthesias Psychiatric: denies: anxiety Hematological/Lymphatic: denies: easy bleeding ED Past Medical Hx - Past Medical History Hx Hypertension: No Hx Diabetes: No Hx Deep Vein Thrombosis: No Hx Renal Disease: No Hx Sickle Cell Disease: No Hx Headaches / Migraines: Yes (Migraines) Hx Seizures: No Hx Asthma: Yes (Last treated April 2018) Hx COPD: No Hx HIV: No Additional medical history: Anemia during , [id number], Thyroid problems - Surgical History Additional Surgical History: dental extraction. c section - Social History Smoking Status: Never Smoker Substance Use Type: None - Medications Home Medications: Home Medications Medication Instructions Recorded Confirmed Last Taken Type Albuterol Sulfate [Ventolin Hfa] 2 puff IH Q4H PRN 01/19/19 02/03/19 05/03/18 10:00 History Albuterol Sulfate [Proventil Hfa] 6.7 gm IH QID PRN #1 hfa.aer.ad 01/05/20 Unknown Rx Prednisone [predniSONE 10 mg 10 mg PO .TAPER #1 tab.ds.pk 01/05/20 Unknown Rx (6-Day Pack, 21 Tabs)] Azithromycin [Zithromax Z-CLAUDIA] 250 mg PO DAILY #6 tablet 06/06/21 Unknown Rx Benzonatate [Tessalon Perles] 100 mg PO Q8HR #30 capsule 06/06/21 Unknown Rx Cetirizine HCl [Zyrtec 10mg tab] 10 mg PO DAILY #30 tablet 06/06/21 Unknown Rx Ibuprofen [Motrin] 600 mg PO Q8H PRN #30 tablet 06/06/21 Unknown Rx Ondansetron [Zofran Odt] 4 mg PO Q8HR PRN #15 tab.rapdis 06/06/21 Unknown Rx Albuterol Mdi (or & Nicu Only) 1 puff IH Q4-6H PRN #1 inha 06/25/21 Unknown Rx [ProAir HFA Inhaler] Azithromycin [Zithromax] 500 mg PO QDAY #3 tablet 06/25/21 Unknown Rx predniSONE [Deltasone] 50 mg PO QDAY #5 tab 06/25/21 Unknown Rx Butalb/Acetaminophen/Caffeine 1 cap PO Q6HR PRN #21 cap 12/16/21 Unknown Rx [Fioricet 50-300-40 mg CAP] ED Physical Exam - General Limitations: No Limitations General appearance: alert, in no apparent distress - Head Head exam: Present: atraumatic, normocephalic, normal inspection - Eye Eye exam: Present: normal appearance. Absent: conjunctival injection - Neck Neck exam: Present: normal inspection, full ROM. Absent: tenderness - Respiratory Respiratory exam: Present: normal lung sounds bilaterally. Absent: respiratory distress, wheezes, rales, rhonchi, stridor, chest wall tenderness, accessory muscle use - Cardiovascular Cardiovascular Exam: Present: regular rate - GI/Abdominal GI/Abdominal exam: Present: soft, normal bowel sounds. Absent: distended, tenderness - Extremities Exam Extremities exam: Present: normal inspection, full ROM - Back Exam Back exam: Present: normal inspection, full ROM. Absent: tenderness, CVA tenderness (R), CVA tenderness (L), muscle spasm - Neurological Exam Neurological exam: Present: alert, oriented X3 - Psychiatric Psychiatric exam: Present: normal affect, normal mood - Skin Skin exam: Present: warm, dry, intact, normal color ED Course Vital Signs 12/16/21 12/16/21 15:24 18:11 Temperature 98.1 F Pulse Rate 75 Respiratory 16 16 Rate Blood Pressure 114/76 [Left] O2 Sat by Pulse 97 Oximetry ED Medical Decision Making - Radiology Data Radiology results: report reviewed CT head- no acute findings noted. - Medical Decision Making 31 yof with no pmh presents to ed for evaluation of syncopal episode. She states that she was getting her lip hunt, it was taking to long, she got hot, and had syncopal episode. She states that her friend who was there say that she was out for a while and had what looked like a seizure. She denies any history of seizures. She states that the LOC lasted for about [address] head without acute findings. Headache improved with Fiorcet. Patient without symptoms at this time. Patient was advised to take medications as prescribed and follow up with neurology is worsening symptoms. She verbalized understanding of and agreement with plan of care. Critical care attestation.: If time is entered above; I have spent that time in minutes in the direct care of this critically ill patient, excluding procedure time. ED Disposition Clinical Impression: Fall Qualifiers: Encounter type: initial encounter Qualified Code(s): W19.XXXA - Unspecified fall, initial encounter Head injury Qualifiers: Encounter type: initial encounter Qualified Code(s): S09.90XA - Unspecified injury of head, initial encounter Disposition: 01 HOME / SELF CARE / HOMELESS Is pt being admited?: No Does the pt Need Aspirin: No Condition: Stable Instructions: Head Injury, Adult Additional Instructions: Take medications as prescribed. Follow-up with primary care provider if worsening symptoms. Prescriptions: Butalb/Acetaminophen/Caffeine [Fioricet 50-300-40 mg CAP] 1 cap PO Q6HR PRN #21 cap PRN Reason: Headache Referrals: ARMAAN LAN MD [Referring] - 3-5 Days ANILA REES MD [Referring] - 3-5 Days Time of Disposition: 18:55
== END 2021-12-16 19:55 | disposition home or self-care (01) ==
LOC: ED 13:11
DX: S09.90XA Unspecified injury of head, initial encounter (principal); J45.909 Unspecified asthma, uncomplicated; G43.909 Migraine, unspecified, not intractable, without status migrainosus; Z98.890 Other specified postprocedural states; Z88.0 Allergy status to penicillin; Z79.899 Other long term (current) drug therapy; R55 Syncope and collapse; W18.39XA Other fall on same level, initial encounter; Y93.89 Activity, other specified; Y92.89 Other specified places as the place of occurrence of the external cause; Y99.8 Other external cause status
CPT/HCPCS: 70450; 99283